=== PATIENT | female | born 1960 | race Caucasian/White ===

== ENCOUNTER → 2017-09-04 | Outpatient (CLI) | payer OTHER ==
--- NOTE | 2017-09-04 15:31 | ECHOS ---
STRESS ECHOCARDIOGRAM DATE OF SERVICE: 09/04/2017 INDICATIONS: Abnormal ECG MEDICATIONS: Losartan, omeprazole, fish oil, D3, Vitamin, ibuprofen. BASELINE HEART RATE: 67 BASELINE BLOOD PRESSURE: 131/77 MAXIMUM HEART RATE: 142 MAXIMUM. BLOOD PRESSURE: 211/85 85% MPHR: 139 100% MPHR: 164 METS: 9.7 MAXIMUM STAGE REACHED: II TOTAL EXERCISE TIME: 8:05 CLINICAL INFORMATION: Baseline rhythm is sinus mechanism, rate 67, normal axis, intervals, normal electrocardiogram. Baseline blood pressure 131/77 mmHg. The patient exercised on Maximilian protocol for 8 minute 5 seconds reaching a peak rate 142 beats per minute which is equal to 86% maximum predicted heart rate. Peak blood pressure 211/85 mmHg. Test was terminated due to fatigue. There were no chest pains. Electrocardiograph monitoring revealed rare PVCs there was no evidence of diagnostic ischemic ST deviation. FINDINGS: Baseline echocardiogram revealed normal left ventricular function at peak exercise. There was normal wall motion augmentation with no hypokinesis or dyskinesis. CONCLUSION: Average exercise tolerance with occasional premature ventricular contractions premature ventricular contractions and normal electrocardiograph response to exercise. Normal stress echocardiogram with no evidence of stress-induced ischemia. MMODL / IJN: [id number] / MTDD
== END | disposition home or self-care (01) ==
LOC: RADNMMAIN 09:43
PROVIDERS: ATTEND Family Medicine
DX: I49.3 Ventricular premature depolarization (principal)
CPT/HCPCS: 93351; Q9950

== ENCOUNTER 2017-09-27 07:58 | Day surgery (SDC) | payer OTHER ==
[2017-09-24 12:33] VITALS: BMI 34.3
--- NOTE | 2017-09-26 09:57 | HP ---
HISTORY AND PHYSICAL CHIEF COMPLAINT: Left knee pain. 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 She notes progressive pain along with giving way. She also has swelling and stiffness. She has tried medications in addition to previous injections with only partial temporary relief. PAST MEDICAL HISTORY: Significant for reflux disease. PAST SURGICAL HISTORY: Negative. CURRENT MEDICATIONS: 1. Ibuprofen. 2. Losartan. 3. Omeprazole. She denies drug allergies. FAMILY HISTORY: Significant for heart disease and cancer. SOCIAL HISTORY: Negative for current tobacco or alcohol use. REVIEW OF SYSTEMS: A 16 point review of systems otherwise reviewed and is noncontributory. PHYSICAL EXAMINATION: The patient is approximately 5 foot 4, 200 pounds of endomorphic habitus. HEENT exam is nonfocal. Neck is supple. She has painless passive motion of her left hip. Straight leg raise is negative. Active motion left knee -10 to 130 degrees of flexion. She has a mild effusion. Collaterals are stable, Pratibha is negative, Wesley's elicits medial pain. Her distal neurovascular exam appears intact in the left lower extremity. X-rays of the left knee obtained in the office show moderate medial and patellofemoral compartment narrowing. MRI report left knee shows evidence of a posterior medial meniscal tear along with a large Halrey's cyst. Degenerative changes involve the medial and patellofemoral compartment are noted. IMPRESSION: 1. Left knee internal derangement with symptomatic medial meniscal tear. 2. 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 3. Increased body mass index. RECOMMENDATIONS: I talked to the patient at length regarding her condition and treatment options. At this point, she is having persistent pain and mechanical symptoms that limit her despite conservative measures. After thorough discussion, she opts to proceed with surgery. We will plan to proceed with arthroscopic evaluation with possible partial medial meniscectomy. We will likely perform that as an outpatient procedure. Risks and benefits were discussed at length in layman's terms. The patient underwent preoperative medical evaluation by Dr. Ramsay. MMTASNEEM / OZIEL: [id number] /
[~2017-09-27 07:58] MED LIST: DEXAMETHASONE SOD PHOSPHATE 10 MG/ML 1 ML VIAL IV ONE; LACTATED RINGERS 1,000 ML IV SCH; MIDAZOLAM 2 MG/2 ML VIAL IV PRN; ONDANSETRON 4 MG/2 ML VIAL IVP ONE; ceFAZolin IN SWFI 2 GM/20 ML SYRINGE IVP ONE
[2017-09-27] MEDS ORDERED: LIDOCAINE 1% 20 ML VIAL (10MG/ML) FOR IV START INTRADERMA ONE (08:36)
[2017-09-27] MEDS ORDERED: fentaNYL (PF) 50 MCG/ML 2 ML AMP ONE (10:08)
[2017-09-27] MEDS ORDERED: EPINEPHrine (PF) 1 ML in SODIUM CHLORIDE 0.9% IRRIGATIO 3,000 ML IRRIGATION ONE ×4 (10:08)
[2017-09-27] MEDS ORDERED: PROPOFOL 10 MG/ML 20 ML VIAL IV ONE (10:08)
[2017-09-27] MEDS ORDERED: LIDOCAINE 1% INJ 10MG/ML (20 ML MDV) ONE (10:08)
[2017-09-27] MEDS ORDERED: MIDAZOLAM 2 MG/2 ML VIAL ONE (10:08)
[2017-09-27] MEDS ORDERED: LACTATED RINGERS 1,000 ML IV ONE (10:55)
[2017-09-27 11:09] VITALS: TEMP 97
--- NOTE | 2017-09-27 11:11 | P.OP ---
Date of Procedure: 09/27/17 Preoperative Diagnosis: Left knee internal derangement Postoperative Diagnosis: Left knee posterior medial meniscal tear/middle one third lateral meniscal tear/ grade 3 chondral injury medial femoral condyle/grade 3 chondral injury medial patellar facet Procedure(s) Performed: Left knee arthroscopic partial medial and lateral meniscectomy/medial femoral chondrectomy/patellar chondroplasty Anesthesia: KINJAL Surgeon: Justice Ash Estimated Blood Loss (ml): 10 Pathology: none sent Condition: stable Disposition: PACU Indications for Procedure: The patient's a 57-year-old female presents with progressive left knee pain and mechanical symptoms after a previous twisting injury despite conservative measures. A discussion of the risks and benefits of operative intervention versus continued conservative measures was made with the patient. She opted to proceed with surgery. Operative risks to include infection, neurovascular injury, development of blood clots, possible incomplete resolution of symptoms, possible worsening symptoms and need for subsequent procedures was discussed. Informed consent was obtained. Operative Findings: As below Description of Procedure: The patient was brought to the operating room, and after induction of general anesthesia examined the left knee. Collaterals were stable, Pratibha was negative, and posterior drawer was negative. The left lower extremity was prepped and draped in normal fashion. A superior lateral portal was made through a 3 mm skin incision superior and lateral to the patella. This was used for outflow. A moderate effusion was encountered. A lateral portal was made through a 5 mm vertical skin incision lateral to the patella tendon above the joint line. Diagnostic arthroscopy was performed. A medial portal was made through a similar incision medial to the patella tendon above the joint line. On inspection of the medial compartment, she was noted of complex tear involving the posterior horn of the medial meniscus in the white-junction. This was not amenable to repair. This was debrided back to stable base with straight baskets and a motorized shaver. A grade 3 chondral injury involving the posterior middle portion of the medial femoral condyle was noted with a loose chondral flap. This was debrided back to stable base with a motorized shaver. A grade 3/4 chondral defect was noted involving the medial aspect the medial tibial plateau. On inspection of the notch, the anterior cruciate ligament appeared to be intact. On inspection of the lateral compartment, a small oblique tear involving the middle one third was noted in the white-white junction. This debrided back to stable base with a motorized shaver and straight baskets. On inspection of the patellofemoral articulation, significant arthrosis was noted. There was a grade 3/4 chondral defect involving the central portion of the patella and a grade 3 chondral injury involving the medial patella facet. The loose chondral flap was debrided back to stable base with a motorized shaver. The gutters were clear debris. The knee was then thoroughly irrigated. The portals were closed with Steri-Strips. A sterile dressing was applied in addition to a compression stocking. The patient was awoken from general anesthesia and transferred to the recovery room in good condition. Blood loss was estimated 10 mL. No complications were incurred.
[2017-09-27] MEDS: HYDROmorphone 0.5 MG/0.5 ML SYRINGE IVP PRN ×2 (11:14→11:26)
[2017-09-27] MEDS ORDERED: KETOROLAC 30 MG/ML 1 ML VIAL IVP ONE (11:14)
[2017-09-27] MEDS ORDERED: HYDROcodone/APAP 5-325MG 1 EACH TAB PO ONE (12:30)
[2017-09-27] MEDS ORDERED: ONDANSETRON 4 MG/2 ML VIAL IVP ONE (13:35)
[2017-09-27] MEDS ORDERED: PROMETHAZINE INJ 25 MG/ML 1 ML VIAL IVPB ONE (14:51)
[2017-09-27 15:39] VITALS: RESP 18
[2017-09-27 15:41] VITALS: BP 128/70; PULSE 68
== END 2017-09-27 16:39 | disposition home or self-care (01) ==
LOC: OR 07:58
PROVIDERS: ATTEND Orthopaedic Surgery
DX: S83.232A Complex tear of medial meniscus, current injury, left knee, initial encounter (principal); S83.282A Other tear of lateral meniscus, current injury, left knee, initial encounter; S89.82XA Other specified injuries of left lower leg, initial encounter; M17.12 Unilateral primary osteoarthritis, left knee; K21.9 Gastro-esophageal reflux disease without esophagitis; I10 Essential (primary) hypertension; M19.90 Unspecified osteoarthritis, unspecified site; Z79.1 Long term (current) use of non-steroidal anti-inflammatories (NSAID); Z79.899 Other long term (current) drug therapy; Z82.49 Family history of ischemic heart disease and other diseases of the circulatory system; Z80.9 Family history of malignant neoplasm, unspecified; X50.9XXA Other and unspecified overexertion or strenuous movements or postures, initial encounter
CPT/HCPCS: 29880; J2250; J1100; J2550; J2405; J0171; J2001; J3010; J1885; J2704; J1170; J0690

== ENCOUNTER 2018-12-30 13:25 | Observation (INO) | payer OTHER ==
--- NOTE | 2018-12-30 14:27 | ED ---
General Adult HPI - General Chief complaint: Neuro Symptoms/Deficit Stated complaint: Medication reaction, Lethargic Time Seen by Provider: 12/30/18 14:05 Source: patient, RN notes reviewed Mode of arrival: ambulatory Limitations: no limitations - History of Present Illness Initial comments: Patient is a pleasant 58-year-old female presenting to the emergency Department with complaints of palpitations. Patient woke up this morning and has felt lightheaded since that time. Patient feels her speech may be off slightly. Family is unclear whether or not this could be slightly slurred. They state patient speech normally is slightly slurred however this may be slightly worse than normal. Patient states she does have some odd sensation of her left arm. Patient denies any weakness. Patient does not feel confused. No history of similar symptoms previously. Patient did start a new blood pressure medicine and questions if this could be related. - Related Data Home Medications Medication Instructions Recorded Confirmed Cholecalciferol [Vitamin D3] 5,000 unit PO DAILY 09/24/17 12/30/18 [place]-3 Fatty Acids/Fish Oil [Fish 1 cap PO DAILY 09/24/17 12/30/18 Oil 1,000 mg Softgel] Omeprazole [PriLOSEC] 20 mg PO AC-BRKFST 09/24/17 12/30/18 Furosemide [Lasix] 20 mg PO DAILY 12/30/18 12/30/18 Potassium Chloride [K-Tab ER] 10 meq PO DAILY 12/30/18 12/30/18 amLODIPine [Norvasc] 10 mg PO DAILY 12/30/18 12/30/18 cloNIDine HCL [Catapres] 0.1 mg PO BID 12/30/18 12/30/18 Allergies Allergy/AdvReac Type Severity Reaction Status Date / Time hydrochlorothiazide Allergy Rash/Hives Verified 12/30/18 14:45 Review of Systems ROS Statement: Those systems with pertinent positive or pertinent negative responses have been documented in the HPI. ROS Other: All systems not noted in ROS Statement are negative. Constitutional: Denies: fever Eyes: Denies: eye pain ENT: Denies: ear pain Respiratory: Denies: cough Cardiovascular: Denies: chest pain Endocrine: Denies: fatigue Gastrointestinal: Denies: abdominal pain Genitourinary: Denies: dysuria Musculoskeletal: Denies: back pain Skin: Denies: rash Neurological: Reports: paresthesias. Denies: headache, weakness, confusion Past Medical History Past Medical History: GERD/Reflux, Hypertension History of Any Multi-Drug Resistant Organisms: None Reported Past Surgical History: Ear Surgery, Orthopedic Surgery, Tonsillectomy, Tubal Ligation Additional Past Surgical History / Comment(s): sinus Past Psychological History: No Psychological Hx Reported Smoking Status: Never smoker Past Alcohol Use History: Rare Past Drug Use History: None Reported General Exam Limitations: no limitations General appearance: alert, in no apparent distress Head exam: Present: normocephalic Eye exam: Present: normal appearance, PERRL, EOMI. Absent: nystagmus ENT exam: Present: normal oropharynx Neck exam: Present: normal inspection Respiratory exam: Present: normal lung sounds bilaterally Cardiovascular Exam: Present: regular rate, normal rhythm GI/Abdominal exam: Present: soft. Absent: tenderness Extremities exam: Present: normal inspection. Absent: pedal edema, calf tenderness Neurological exam: Present: alert, oriented X3, CN II-XII intact. Absent: motor sensory deficit Expanded Neurological exam: Present: protecting the airway, other (Speech does appear slightly slurred) Patient oriented to: Present: person, place, time Cranial nerves: EOM's Intact: Normal, Facial Sensation: Normal Cerebellar function: Finger to Nose: Normal Sensory exam: Upper Extremity Light Touch: Normal, Lower Extremity Light Touch: Normal Motor strength exam: RUE: 5, LUE: 5, RLE: 5, LLE: 5 Eye Response: (4) open spontaneously Motor Response: (6) obeys commands Verbal Response: (5) oriented Psychiatric exam: Present: normal affect, normal mood Skin exam: Present: normal color Course Vital Signs 12/30/18 12/30/18 12/30/18 13:33 14:00 14:30 Temperature 97.4 F L Pulse Rate 71 70 73 Respiratory 16 10 L 21 Rate Blood Pressure 194/83 165/93 184/98 O2 Sat by Pulse 98 100 100 Oximetry 12/30/18 12/30/18 15:00 15:30 Temperature Pulse Rate 78 Respiratory 34 H Rate Blood Pressure 184/98 O2 Sat by Pulse 97 Oximetry EKG Findings - EKG Comments: EKG Findings:: Normal sinus rhythm 73. OH 140. QRS 90. QT 414. QTC 456. Normal axis. LVH criteria. No acute ST change. Medical Decision Making - Medical Decision Making Patient reevaluated and updated. Case discussed with detail with Dr. Pittman, who will admit covered for Dr. canela - Lab Data Result diagrams: 12/30/18 14:06 12/30/18 14:06 Lab Results 12/30/18 12/30/18 12/30/18 Range/Units 14:06 14:06 14:06 WBC 10.1 (3.8-10.6) k/uL RBC 4.73 (3.80-5.40) m/uL Hgb 14.7 (11.4-16.0) gm/dL Hct 42.2 (34.0-46.0) % MCV 89.2 (80.0-100.0) fL MCH 31.0 (25.0-35.0) pg MCHC 34.7 (31.0-37.0) g/dL RDW 12.8 (11.5-15.5) % Plt Count 350 (150-450) k/uL Neutrophils % 74 % Lymphocytes % 17 % Monocytes % 6 % Eosinophils % 1 % Basophils % 1 % Neutrophils # 7.4 (1.3-7.7) k/uL Lymphocytes # 1.7 (1.0-4.8) k/uL Monocytes # 0.6 (0-1.0) k/uL Eosinophils # 0.1 (0-0.7) k/uL Basophils # 0.1 (0-0.2) k/uL PT 9.9 (9.0-12.0) sec INR 0.9 (<1.2) APTT 24.3 (22.0-30.0) sec Sodium 139 (137-145) mmol/L Potassium 4.0 (3.5-5.1) mmol/L Chloride 103 (98-107) mmol/L Carbon Dioxide 24 (22-30) mmol/L Anion Gap 12 mmol/L BUN 16 (7-17) mg/dL Creatinine 0.65 (0.52-1.04) mg/dL Est GFR (CKD-EPI)AfAm >90 (>60 ml/min/1.73 sqM) Est GFR (CKD-EPI)NonAf >90 (>60 ml/min/1.73 sqM) Glucose 145 H (74-99) mg/dL Calcium 9.7 (8.4-10.2) mg/dL Total Bilirubin 0.4 (0.2-1.3) mg/dL AST 50 H (14-36) U/L ALT 100 H (9-52) U/L Alkaline Phosphatase 126 (38-126) U/L Troponin I (0.000-0.034) ng/mL Total Protein 8.1 (6.3-8.2) g/dL Albumin 4.7 (3.5-5.0) g/dL 12/30/18 Range/Units 14:06 WBC (3.8-10.6) k/uL RBC (3.80-5.40) m/uL Hgb (11.4-16.0) gm/dL Hct (34.0-46.0) % MCV (80.0-100.0) fL MCH (25.0-35.0) pg MCHC (31.0-37.0) g/dL RDW (11.5-15.5) % Plt Count (150-450) k/uL Neutrophils % % Lymphocytes % % Monocytes % % Eosinophils % % Basophils % % Neutrophils # (1.3-7.7) k/uL Lymphocytes # (1.0-4.8) k/uL Monocytes # (0-1.0) k/uL Eosinophils # (0-0.7) k/uL Basophils # (0-0.2) k/uL PT (9.0-12.0) sec INR (<1.2) APTT (22.0-30.0) sec Sodium (137-145) mmol/L Potassium (3.5-5.1) mmol/L Chloride (98-107) mmol/L Carbon Dioxide (22-30) mmol/L Anion Gap mmol/L BUN (7-17) mg/dL Creatinine (0.52-1.04) mg/dL Est GFR (CKD-EPI)AfAm (>60 ml/min/1.73 sqM) Est GFR (CKD-EPI)NonAf (>60 ml/min/1.73 sqM) Glucose (74-99) mg/dL Calcium (8.4-10.2) mg/dL Total Bilirubin (0.2-1.3) mg/dL AST (14-36) U/L ALT (9-52) U/L Alkaline Phosphatase (38-126) U/L Troponin I <0.012 (0.000-0.034) ng/mL Total Protein (6.3-8.2) g/dL Albumin (3.5-5.0) g/dL - Radiology Data Radiology results: report reviewed (Computed tomography scan and CTA shows no acute process), image reviewed (Chest x-ray shows no acute process) Disposition Clinical Impression: Transient cerebral ischemia Disposition: ADMITTED IP TO THIS HOSP Is patient prescribed a controlled substance at d/c from ED?: No Referrals: Minor Ramsay MD [Primary Care Provider] - 1-2 days Decision Time: 16:17
[2018-12-30 14:54] LABS: Basophils # (A) 0.1 k/uL (0-0.2); Basophils % (A) 1 %; Eosinophils # (A) 0.1 k/uL (0-0.7); Eosinophils % (A) 1 %; HCT 42.2 % (34.0-46.0); HGB 14.7 gm/dL (11.4-16.0); Lymphocytes # (A) 1.7 k/uL (1.0-4.8); Lymphocytes % (A) 17 %; MCHC 34.7 g/dL (31.0-37.0); MCV 89.2 fL (80.0-100.0); Mean Platelet Volume 5.7; Monocytes # (A) 0.6 k/uL (0-1.0); Monocytes % (A) 6 %; Neutrophils # (A) 7.4 k/uL (1.3-7.7); Neutrophils % (A) 74 %; Platelet Count 350 k/uL (150-450); RBC 4.73 m/uL (3.80-5.40); RDW 12.8 % (11.5-15.5); WBC 10.1 k/uL (3.8-10.6)
[2018-12-30 14:56] LABS: ALT 100 U/L (9-52); AST 50 U/L (14-36); African American GFR (CKD) >90 (>60 ml/min/1.73 sqM); Albumin 4.7 g/dL (3.5-5.0); Alkaline Phosphatase 126 U/L (38-126); Anion Gap 12 mmol/L; Blood Urea Nitrogen 16 mg/dL (7-17); Calcium 9.7 mg/dL (8.4-10.2); Carbon Dioxide 24 mmol/L (22-30); Chloride 103 mmol/L (98-107); Glucose 145 mg/dL (74-99); Sodium 139 mmol/L (137-145); Total Bilirubin 0.4 mg/dL (0.2-1.3); Total Protein 8.1 g/dL (6.3-8.2)
[2018-12-30 15:05] LABS: INR 0.9 (<1.2); Partial Thromboplastin Time 24.3 sec (22.0-30.0); Prothrombin Time 9.9 sec (9.0-12.0)
--- NOTE | 2018-12-30 15:32 | CT ---
EXAMINATION TYPE: CT brain wo con for TPA DATE OF EXAM: 12/30/2018 COMPARISON: None HISTORY: lightheadedness CT DLP: 987.[address] of the brain was performed. The ventricles, basal cisterns and sulci overlying the cerebral convexities demonstrate mild enlargem ent. There is no evidence for intracranial hemorrhage or sulcal effacement. There is decreased attenuation about the periventricular white matter and deep white matter of both c erebral hemispheres, compatible with chronic small vessel ischemia. Differential diagnosis does inclu de demyelination. No mass effects are seen.No midline shift. Osseous calvarium is intact. If symptoms persist consider MRI. IMPRESSION: 1. Age related atrophic and chronic small vessel ischemic change without acute intracranial process s een at this time.
--- NOTE | 2018-12-30 15:44 | XR ---
EXAMINATION TYPE: XR chest 2V DATE OF EXAM: 12/30/2018 COMPARISON: None INDICATION: Altered mental status lethargic hypertension TECHNIQUE: Frontal and lateral views of the chest are obtained. FINDINGS: The heart size is normal. The pulmonary vasculature is normal. The lungs are clear. IMPRESSION: 1. No acute pulmonary process.
--- NOTE | 2018-12-30 15:45 | CT ---
EXAMINATION TYPE: CT angio head neck DATE OF EXAM: 12/30/2018 COMPARISON: None HISTORY: lightheadedness CT DLP: 688.9 mGycm CONTRAST: Performed with IV Contrast, patient injected with 65 mL of Isovue 370. Combination Contrast CTA cervical carotids and [place] of [place] CTA cervical carotids with 3-D recons truction Contrast CTA of the cervical carotids was performed 3-D reconstruction imaging obtained at a separate workstation. Right carotid system: Mild plaque is seen of the right common carotid artery. There is mild plaque a lso noted at the carotid bulb and proximal ICA. No significant diameter reduction. ECA is patent. Right vertebral artery appears unremarkable. Left carotid system: Mild plaque is seen of the left common carotid artery. There is mild plaque als o noted at the carotid bulb and proximal ICA. No significant diameter reduction. ECA is patent. Lef t vertebral artery appears unremarkable. IMPRESSION: 1. No significant diameter reduction to account for the patient's symptoms. CTA [place] of [place] with 3-D reconstruction Contrast CTA of the [place] of [place] was performed 3-D reconstruction imaging obtained at a separate workstation. Vertebrobasilar system as well as intracranial portions of the internal carotid arteries and their ma santhosh tributaries are patent. I do not see evidence for sizable aneurysm or vascular malformation. Pl ease note MRI provides greater sensitivity and specificity. Visualized brain appears grossly unremar kable. IMPRESSION: 1. No significant abnormality.
[2018-12-30] MEDS ORDERED: ASPIRIN 325 MG TAB PO STA (16:17)
[2018-12-30] MEDS: SODIUM CHLORIDE 0.9% 1,000 ML IV SCH (16:37)
[2018-12-31 06:30] LABS: Cholesterol 204 mg/dL (<200); HDL Cholesterol 55 mg/dL (40-60); LDL Cholesterol,Calculated 110 mg/dL (0-99); Triglycerides 194 mg/dL (<150)
[2018-12-31] MEDS ORDERED: ASPIRIN 325 MG TAB PO SCH (09:00)
[2018-12-31] MEDS ORDERED: amLODIPine 10 MG TAB PO SCH (10:30)
[2018-12-31] MEDS ORDERED: PANTOPRAZOLE 40 MG TABLET PO SCH (10:30)
[2018-12-31] MEDS ORDERED: CHOLECALCIFEROL 1,000 UNIT TAB PO SCH (10:30)
[2018-12-31] MEDS ORDERED: CHLORTHALIDONE 25 MG TAB PO SCH (10:30)
[2018-12-31] MEDS: SODIUM CHLORIDE 0.9% 1,000 ML IV SCH ×2 (11:00→16:24)
--- NOTE | 2018-12-31 12:31 | ECHOF ---
Referral Reason:Thrombus MEASUREMENTS -------- HEIGHT: 162.6 cm WEIGHT: 94.8 kg BP: 131/74 RVIDd: 2.8 cm (< 3.3) IVSd: 1.5 cm (0.6 - 1.1) LVIDd: 4.4 cm (3.9 - 5.3) LVPWd: 1.4 cm (0.6 - 1.1) IVSs: 1.7 cm LVIDs: 3.1 cm LVPWs: 1.9 cm LA Diam: 3.7 cm (2.7 - 3.8) LAESV Index (A-L): 15.21 ml/m Ao Diam: 2.9 cm (2.0 - 3.7) AV Cusp: 2.2 cm (1.5 - 2.6) MV EXCURSION: 20.824 mm (> 18.000) MV EF SLOPE: 130 mm/s (70 - 150) EPSS: 0.4 cm MV E Edgar: 0.86 m/s MV DecT: 150 ms MV A Edgar: 0.85 m/s MV E/A Ratio: 1.01 FINDINGS -------- Sinus rhythm. This was a technically difficult study with suboptimal apical views. The left ventricular size is normal. There is moderate concentric left ventricular hypertrophy. O verall left ventricular systolic function is normal with, an EF between 60 - 65 %. The diastolic fi lling pattern is normal for the age of the patient 9.67. The right ventricle is normal in size. Normal LA size by volume 22+/-6 ml/m2. The right atrium is normal in size. 5 ml of Lumason was utilized for enhancement of images. Interatrial and interventricular septum intact. The aortic valve is trileaflet and appears structurally normal. There is trace to mild mitral regurgitation. Mild tricuspid regurgitation present. The pulmonic valve was not well visualized. The aortic root size is normal. Normal inferior vena cava with normal inspiratory collapse consistent with estimated right atrial pre ssure of 5 mmHg. There is no pericardial effusion. CONCLUSIONS -------- 1. Sinus rhythm. 2. This was a technically difficult study with suboptimal apical views. 3. The left ventricular size is normal. 4. There is moderate concentric left ventricular hypertrophy. 5. Overall left ventricular systolic function is normal with, an EF between 60 - 65 %. 6. The diastolic filling pattern is normal for the age of the patient 9.67 7. The right ventricle is normal in size. 8. Normal LA size by volume 22+/-6 ml/m2. 9. The right atrium is normal in size. 10. 5 ml of Lumason was utilized for enhancement of images. 11. Interatrial and interventricular septum intact. 12. The aortic valve is trileaflet and appears structurally normal. 13. There is trace to mild mitral regurgitation. 14. Mild tricuspid regurgitation present. 15. The pulmonic valve was not well visualized. 16. The aortic root size is normal. 17. Normal inferior vena cava with normal inspiratory collapse consistent with estimated right atrial pressure of 5 mmHg. 18. There is no pericardial effusion. METEOROLOGIST LIAISON: Esthela Sexton RDCS
--- NOTE | 2018-12-31 12:38 | P.CNNES ---
History of Present Illness Consult date: 12/31/18 Reason for Consult: Concern for stroke Chief complaint: Palpitations, ? Slurred speech History of Present Illness: HISTORY OF PRESENT ILLNESS: Thank you for allowing me to evaluate Ms. Adriana King. Ms. King is a 58-year-old woman with past medical history of hypertension and GERD, initially presented to [facility] for generalized weakness, on evaluation patient reported possibly having some slurred speech and some altered sensation in her LUE, consulting neurology for concern for stroke/TIA. Patient states that she had been feeling very weak and not feeling right. Daughter had stated she had some slurred speech, but when I asked daughter do describe, it was more mumbling, which patient often has when she feels sick. Patient states that her LUE and L face didn't necessarily feel numb but felt "different." At this time, she still has the sensation. Patient states that she was recently started on clonidine, which she thinks made her feel off. Her PCP discontinued this medication for her. Her BP has been elevated. She also was started on lasix, and she feels as though the lasix makes her feel constipated. She also feels "bloated" often times in her extremities and all over her body, and she thought the sensation she's having right now was part of feeling "bloated." Denies headache, nausea, vomiting, double/blurry vision, weakness. PAST MEDICAL HISTORY: Hypertension, GERD PAST SURGICAL HISTORY: Tonsillectomy, tubal ligation, ear surgery HOME MEDICATIONS: Omeprazole, vitamin D, omega-3, clonidine, amlodipine, furosemide, potassium ALLERGIES: Hydrochlorothiazide SOCIAL HISTORY: Never smoker. Denies EtOH/drug abuse history FAMILY HISTORY: Father had SC. Grandmother had stroke, DM and HTN REVIEW OF SYSTEMS: The 14 systems are reviewed and no additional points are identified compared to the review of systems documented history and physical PHYSICAL EXAMINATION: VITAL SIGNS: T 98.6 HR 49 RR 16 BP 131/84 O2 sat 98% on RA GEN.: NAD, pleasant and cooperative HEENT: NCAT, sclera without icterus NECK: Supple, no carotid bruit SKIN AND EXTREMITIES: Warm to touch, no edema NEURO: MENTAL STATUS: Patient alert and oriented to self, place, time. Able to name the current president. Speech fluent, able to name and repeat, following all commands readily. No right and left disorientation, extinction to double simultaneous stimulation, finger agnosia, neglect. CRANIAL NERVES II THROUGH XII: II: Pupils are equal and reactive to light symmetrically. No afferent pupillary defect. Visual ochoa are intact. III, IV, : No ptosis. Extraocular movements full. No nystagmus. V: Feeling "different" in the corner of her L lip. Otherwise, Facial sensation intact from V1-3. VII. No clear facial asymmetry. VIII: Hearing intact to finger rub bilaterally. IX, X: Symmetric palate elevation. XI: Shoulder shrug intact. XII: Tongue midline without fasciculation or atrophy. MOTOR: Normal bulk/tone. No pronator drift or tremor. Strength is 5/5 throughout all 4 extremities. SENSORY: Intact to light touch in all 4 extremities. Romberg is negative. REFLEXES: 2+ throughout. Toes are downgoing. No clonus. Urszula's is absent COORDINATION: Finger to nose and heel to hanley intact. No dysmetria. Rapid alternating movements with good speed and accuracy. GAIT: Narrow-based and stable. Able to toe/heel/tandem walk DIAGNOSTIC TESTING: LABORATORY: WBC 10.1 hemoglobin 14.7 platelet 350 PT 9.9 INR 0.9 Sodium 139 potassium 4.0 chloride 103 bicarb 24 BUN 16 creatinine 0.65 glucose 145 AST 50 ALT 100 troponin <0.012 total cholesterol 204 LDL 110 HDL 55 triglycerides 194 IMAGING: CT head without contrast 12/30/2018: Age-related atrophic and chronic small vessel ischemic changes without acute intracranial process seen at this time CTA head/neck with contrast 01/10/2019: No significant diameter reduction to come for the patient's symptoms. No significant abnormality within the intracranial arteries. ASSESSMENT: Ms. King is a 58-year-old woman with past medical history of hypertension and GERD, initially presented to [facility] for generalized weakness, on evaluation patient reported possibly having some slurred speech and some altered sensation in her LUE, consulting neurology for concern for stroke/TIA. Patient is continuing to have this sensation, which could be from her initially elevated BP, but cannot rule out stroke. RECOMMENDATIONS: 1. MRI brain without contrast 2. Transthoracic echocardiogram 3. Cardiac monitoring 4. Permissive HTN for 24-48 hours SBP >220. Give labetalol 10mg IV q1h PRN for SBP >220 DBP >110 5. ASA 81mg qday, Atorvastatin 80mg qhs 6. Labs: A1C, TSH, FLP 7. PT/OT/ST per protocol 8. Discussed with patient about stroke prevention guidelines. Medication compliance, hypertension/diabetes control, lifestyle changes including no smoking, drinking in moderation, losing weight, exercising, eating healthier 9. Neurology will continue to follow 10. Patient will need to follow up with neurologist as outpatient Past Medical History Past Medical History: GERD/Reflux, Hypertension History of Any Multi-Drug Resistant Organisms: None Reported Past Surgical History: Ear Surgery, Orthopedic Surgery, Tonsillectomy, Tubal Ligation Additional Past Surgical History / Comment(s): sinus Past Psychological History: No Psychological Hx Reported Smoking Status: Never smoker Past Alcohol Use History: Rare Additional Past Alcohol Use History / Comment(s): Never smoker. Lives with significat other. Ambulates independently Past Drug Use History: None Reported - Past Family History Mother Family Medical History: Hypertension Father Family Medical History: Myocardial Infarction (SC) Additional Family Medical History / Comment(s): Father at 48 Medications and Allergies Home Medications Medication Instructions Recorded Confirmed Type Cholecalciferol [Vitamin D3] 5,000 unit PO DAILY 09/24/17 12/30/18 History [place]-3 Fatty Acids/Fish Oil [Fish 1 cap PO DAILY 09/24/17 12/30/18 History Oil 1,000 mg Softgel] Omeprazole [PriLOSEC] 20 mg PO AC-BRKFST 09/24/17 12/30/18 History Furosemide [Lasix] 20 mg PO DAILY 12/30/18 12/30/18 History Potassium Chloride [K-Tab ER] 10 meq PO DAILY 12/30/18 12/30/18 History amLODIPine [Norvasc] 10 mg PO DAILY 12/30/18 12/30/18 History cloNIDine HCL [Catapres] 0.1 mg PO BID 12/30/18 12/30/18 History Allergies Allergy/AdvReac Type Severity Reaction Status Date / Time hydrochlorothiazide Allergy Rash/Hives Verified 12/30/18 14:45 Physical Examination - Vital Signs Vital Signs: Vital Signs Temp Pulse Pulse Resp BP BP Pulse Ox 12/31/18 04:00 98.6 F 49 L 16 131/84 98 12/31/18 00:00 98 F 63 16 154/75 97 12/30/18 20:00 98.2 F 75 18 151/84 98 12/30/18 18:38 75 18 12/30/18 18:33 98.3 F 75 18 136/88 99 12/30/18 18:13 98.3 F 75 18 136/88 99 12/30/18 17:30 65 13 164/94 97 12/30/18 17:00 68 20 164/96 96 12/30/18 16:30 63 16 146/79 96 12/30/18 16:00 69 25 H 176/93 96 12/30/18 15:30 78 34 H 97 12/30/18 15:00 184/98 12/30/18 14:30 73 21 184/98 100 12/30/18 14:00 70 10 L 165/93 100 12/30/18 13:33 97.4 F L 71 16 194/83 98 Intake and Output 12/30/18 12/31/18 12/31/18 22:59 06:59 14:59 Intake Total 100 120 Balance 100 120 Intake: Intake, IV Titration 100 Amount Sodium Chloride 0.9% 1, 100 000 ml @ 100 mls/hr IV . Q10H SHANAE Rx#:[id number] Oral 120 Other: Voiding Method Toilet Toilet # Voids 2 Weight 95.1 kg Results - Laboratory Findings CBC and BMP: 12/30/18 14:06 12/30/18 14:06 Abnormal Lab Findings: Abnormal Labs 12/30/18 12/30/18 06:00 14:06 Glucose 145 H AST 50 H ALT 100 H Triglycerides 194 H Cholesterol 204 H LDL Cholesterol, Calc 110 H
[2018-12-31 15:05] VITALS: RESP 18
--- NOTE | 2018-12-31 15:33 | MR ---
EXAMINATION TYPE: MR brain wo con DATE OF EXAM: 12/31/2018 COMPARISON: CT brain from yesterday HISTORY: Left upper extremity numbness. TECHNIQUE: Multiplanar, multisequence imaging of the brain and brainstem is performed without IV cont rast. FINDINGS: Diffusion weighted images demonstrate no evidence of a recent infarct or other diffusion abnormality. There is no worrisome extra-axial fluid collection. Mild ventricular and sulcal prominence is redemon strated. Occasional small scattered focus of T2 hyperintensity seen throughout the white matter. Larg est lesion posterior right frontal lobe measures 3 to 4 mm in size axial image 23. Approximately 5-10 smaller scattered lesions are seen. Midline structures demonstrate normal morphology. The craniocervical junction appears within normal limits. Normal vascular flow voids are present. The visualized sinuses are clear and the globes are i ntact. IMPRESSION: No MRI evidence for recent infarct. Mild diffuse cerebral atrophy and chronic small vesse l ischemic changes are present.
[2018-12-31 17:57] VITALS: BP 146/82; PULSE 62; TEMP 97.3
[2018-12-31] MEDS ORDERED: ATORVASTATIN 80 MG TAB PO SCH (21:00)
--- NOTE | 2018-12-31 23:10 | P.HPIM ---
History of Present Illness H&P Date: 12/31/18 Chief Complaint: Unwell History of presenting complaint: This is a very pleasant 58-year-old patient of Dr. manuel from [place]. Patient had not been feeling well for about 2 days just feeling out of sorts. Yesterday morning just felt a bit tired. Slowly getting worse. There is no chest pain, no shortness of breath, no fever no chills. No palpitations. Denied any urinary or respiratory symptoms. [place] some numbness tingling in the left side of the face and the left arm. Decided to present to the ER. No change in speech. No change in vision. No headaches. Today was some question about the speech being slightly off. Subsequently the symptoms improved over a span of several hours. Presented here for a neurological workup. Initial testing was all negative. Neurology was consulted. Neuro checks in place. Review of systems: GEN.: None EYES: None HEENT: None NECK: None RESPIRATORY: None CARDIOVASCULAR: None GASTROINTESTINAL: None GENITOURINARY: None MUSCULOSKELETAL: None LYMPHATICS: None HEMATOLOGICAL: None PSYCHIATRY: None NEUROLOGICAL: As above Social history: Lives with significant another. No smoking. Alcohol occasionally. Physical examination: VITAL SIGNS: 97.4, 71, 16, 194/83, 98% room air GENERAL: BMI 36, sitting up comfortable. EYES: Pupils equal. Conjunctiva normal. HEENT: External appearance of nose and ears normal, oral cavity grossly normal. NECK: JVD not raised; masses not palpable. HEART: First and second heart sounds are normal; no edema. LUNGS: Respiratory rate normal; clear to auscultation. ABDOMEN: Soft, nontender, liver spleen not palpable, no masses palpable. PSYCH: Alert and oriented x3; mood and affect normal. NEUROLOGICAL: Cranial nerves grossly intact; no facial asymmetry, power and sensation grossly intact. LYMPHATICS: No lymph nodes palpable in the axilla and neck INVESTIGATIONS, reviewed in the clinical context: White count 10 hemoglobin 14.7 potassium 4.0 creatinine 0.65 LDL 110 EKG tracing personally reviewed by me-normal sinus rhythm with LVH Chest x-ray film personally reviewed by me-lung is clear CT brain-age related changes CT angiogram-unremarkable Assessment: -Possible TIA in a patient with some numbness left side of the face and on the left arm. And some questionable change in speech. -GERD -Essential hypertension with urgency -Obesity BMI 36 Plan: Patient is put on antiplatelet agents. Neurology was consulted. Neuro checks were done. MRI and 2-D echo of the brain was ordered. Care was discussed with the patient. Past Medical History Past Medical History: GERD/Reflux, Hypertension History of Any Multi-Drug Resistant Organisms: None Reported Past Surgical History: Ear Surgery, Orthopedic Surgery, Tonsillectomy, Tubal Ligation Additional Past Surgical History / Comment(s): sinus Past Psychological History: No Psychological Hx Reported Smoking Status: Never smoker Past Alcohol Use History: Rare Additional Past Alcohol Use History / Comment(s): Never smoker. Lives with significat other. Ambulates independently Past Drug Use History: None Reported - Past Family History Mother Family Medical History: Hypertension Father Family Medical History: Myocardial Infarction (CT) Additional Family Medical History / Comment(s): Father at 48 Medications and Allergies Home Medications Medication Instructions Recorded Confirmed Type Cholecalciferol [Vitamin D3 (25 5,000 unit PO DAILY 09/24/17 12/30/18 History Mcg = 1000 Iu)] [place]-3 Fatty Acids/Fish Oil [Fish 1 cap PO DAILY 09/24/17 12/30/18 History Oil 1,000 mg Softgel] Omeprazole [PriLOSEC] 20 mg PO AC-BRKFST 09/24/17 12/30/18 History amLODIPine [Norvasc] 10 mg PO DAILY 12/30/18 12/30/18 History Aspirin 81 mg PO DAILY chew 12/31/18 Rx Atorvastatin [Lipitor] 40 mg PO HS #30 tablet 12/31/18 Rx Chlorthalidone [Hygroton] 25 mg PO DAILY #30 tab 12/31/18 Rx Allergies Allergy/AdvReac Type Severity Reaction Status Date / Time hydrochlorothiazide Allergy Rash/Hives Verified 12/30/18 14:45 Physical Exam Vitals: Vital Signs Temp Pulse Pulse Resp BP BP Pulse Ox 12/31/18 09:42 60 16 12/31/18 09:41 66 16 180/84 97 12/31/18 04:00 98.6 F 49 L 16 131/84 98 12/31/18 00:00 98 F 63 16 154/75 97 12/30/18 20:00 98.2 F 75 18 151/84 98 12/30/18 18:38 75 18 12/30/18 18:33 98.3 F 75 18 136/88 99 12/30/18 18:13 98.3 F 75 18 136/88 99 12/30/18 17:30 65 13 164/94 97 12/30/18 17:00 68 20 164/96 96 12/30/18 16:30 63 16 146/79 96 12/30/18 16:00 69 25 H 176/93 96 12/30/18 15:30 78 34 H 97 12/30/18 15:00 184/98 12/30/18 14:30 73 21 184/98 100 12/30/18 14:00 70 10 L 165/93 100 12/30/18 13:33 97.4 F L 71 16 194/83 98 Intake and Output 12/30/18 12/31/18 12/31/18 22:59 06:59 14:59 Intake Total 100 120 Balance 100 120 Intake: Intake, IV Titration 100 Amount Sodium Chloride 0.9% 1, 100 000 ml @ 100 mls/hr IV . Q10H SHANAE Rx#:[id number] Oral 120 Other: Voiding Method Toilet Toilet # Voids 2 Weight 95.1 kg Results CBC & Chem 7: 12/30/18 14:06 12/30/18 14:06 Labs: Abnormal Lab Results - Last 24 Hours (Table) 12/30/18 12/30/18 Range/Units 06:00 14:06 Glucose 145 H (74-99) mg/dL AST 50 H (14-36) U/L ALT 100 H (9-52) U/L Triglycerides 194 H (<150) mg/dL Cholesterol 204 H (<200) mg/dL LDL Cholesterol, Calc 110 H (0-99) mg/dL Thrombosis Risk Factor Assmnt - Choose All That Apply Any of the Below Risk Factors Present?: Yes Each Factor Represents 1 point: Age 41-60 years, Obesity (BMI >25) Other Risk Factors: No Other congenital or acquired thrombophilia - If yes, enter type in comment: No Thrombosis Risk Factor Assessment Total Risk Factor Score: 2 Thrombosis Risk Factor Assessment Level: Low Risk
--- NOTE | 2018-12-31 23:16 | P.DS ---
Providers Date of admission: 12/30/18 16:19 Expected date of discharge: 12/31/18 Attending physician: Sanjay Pittman Consults: 12/30/18 16:19 Consult Physician Urgent Consulting Provider: Xi Wolff Reason/Comments: tia Do you want consulting provider notified?: Yes Primary care physician: Minor Ramsay [place] Hospital Course: Chief Complaint: [place] Hospital course: This is a very pleasant 58-year-old patient of Dr. ramsay from [place]. Patient had not been feeling well for about 2 days just feeling out of sorts. Yesterday morning just felt a bit tired. Slowly getting worse. There is no chest pain, no shortness of breath, no fever no chills. No palpitations. Denied any urinary or respiratory symptoms. [place] some numbness tingling in the left side of the face and the left arm. Decided to present to the ER. No change in speech. No change in vision. No headaches. Today was some question about the speech being slightly off. Subsequently the symptoms improved over a span of several hours. Presented here for a neurological workup. Initial testing was all negative. Neurology was consulted. Neuro checks in place. Patient was just started on Catapres. Did not feel right after taking it. This was discontinued. She was left on the amlodipine. Chlorthalidone was added. Blood pressures really high when she came in. Well controlled before discharge. Extensive medical workup was done including CT and of the brain, MRA, 2-D echo. All were negative. [place] to be TIA. Aspirin and Lipitor was added. Seen by neurology. Okay to be discharged. Consultation: Dr. Wolff from neurology Physical examination: VITAL SIGNS: 97.3, 62, 18, 1 46/22, 95% room air GENERAL: BMI 36, sitting up comfortable. EYES: Pupils equal. Conjunctiva normal. HEENT: External appearance of nose and ears normal, oral cavity grossly normal. NECK: JVD not raised; masses not palpable. HEART: First and second heart sounds are normal; no edema. LUNGS: Respiratory rate normal; clear to auscultation. ABDOMEN: Soft, nontender, liver spleen not palpable, no masses palpable. PSYCH: Alert and oriented x3; mood and affect normal. NEUROLOGICAL: Cranial nerves grossly intact; no facial asymmetry, power and sensation grossly intact. LYMPHATICS: No lymph nodes palpable in the axilla and neck INVESTIGATIONS, reviewed in the clinical context: White count 10 hemoglobin 14.7 potassium 4.0 creatinine 0.65 LDL 110 EKG tracing personally reviewed by me-normal sinus rhythm with LVH Chest x-ray film personally reviewed by me-lung is clear CT brain-age related changes CT angiogram-unremarkable MRI of the brain-negative 2-D echocardiogram-unremarkable. EF 60-65% Discharge diagnosis: -Possible TIA in a patient with some numbness left side of the face and on the left arm. And some questionable change in speech. -GERD -Essential hypertension with urgency, POA -Obesity BMI 36 Disposition: Home Patient Condition at Discharge: Stable Plan - Discharge Summary Discharge Rx Participant: Yes New Discharge Prescriptions: New Aspirin 81 mg PO DAILY chew Chlorthalidone [Hygroton] 25 mg PO DAILY #30 tab Atorvastatin [Lipitor] 40 mg PO HS #30 tablet Continue Omeprazole [PriLOSEC] 20 mg PO AC-BRKFST Cholecalciferol [Vitamin D3 (25 Mcg = 1000 Iu)] 5,000 unit PO DAILY amLODIPine [Norvasc] 10 mg PO DAILY Discontinued cloNIDine HCL [Catapres] 0.1 mg PO BID Furosemide [Lasix] 20 mg PO DAILY Potassium Chloride [K-Tab ER] 10 meq PO DAILY No Action [place]-3 Fatty Acids/Fish Oil [Fish Oil 1,000 mg Softgel] 1 cap PO DAILY Discharge Medication List Cholecalciferol [Vitamin D3 (25 Mcg = 1000 Iu)] 5,000 unit PO DAILY 09/24/17 [History] [place]-3 Fatty Acids/Fish Oil [Fish Oil 1,000 mg Softgel] 1 cap PO DAILY 09/24/17 [History] Omeprazole [PriLOSEC] 20 mg PO AC-BRKFST 09/24/17 [History] amLODIPine [Norvasc] 10 mg PO DAILY 12/30/18 [History] Aspirin 81 mg PO DAILY chew 12/31/18 [Rx] Atorvastatin [Lipitor] 40 mg PO HS #30 tablet 12/31/18 [Rx] Chlorthalidone [Hygroton] 25 mg PO DAILY #30 tab 12/31/18 [Rx] Follow up Appointment(s)/Referral(s): Yonny Jenkins MD [STAFF PHYSICIAN] - 1 Week (Neurologist. Office is closed. Please call to schedule appointment.) Minor Ramsay MD [Primary Care Provider] - 01/05/19 12:15 pm (Saturday) Patient Instructions/Handouts: Hypertension (DC) Activity/Diet/Wound Care/Special Instructions: Patient will pick medications up at [facility] [place]. Discharge Disposition: HOME SELF-CARE
[2019-01-01] MEDS ORDERED: ASPIRIN 81 MG PO SCH (09:00)
== END 2018-12-31 18:05 | disposition home or self-care (01) ==
LOC: EC 13:25 → 3SCARD 16:19
PROVIDERS: ADMIT Hospitalist; ATTEND Hospitalist
DX: R20.0 Anesthesia of skin (principal); R20.2 Paresthesia of skin; I10 Essential (primary) hypertension; I16.0 Hypertensive urgency; K21.9 Gastro-esophageal reflux disease without esophagitis; R00.2 Palpitations; E66.9 Obesity, unspecified; Z68.36 Body mass index [BMI] 36.0-36.9, adult; Z79.899 Other long term (current) drug therapy; Z88.8 Allergy status to other drugs, medicaments and biological substances; Z98.51 Tubal ligation status; Z83.3 Family history of diabetes mellitus; Z82.49 Family history of ischemic heart disease and other diseases of the circulatory system; Z82.3 Family history of stroke
CPT/HCPCS: 99285; 36415; 93005; 93306; 97161; 97165; 92522; 80061; 80053; 84484; 85025; 85610; 85730; 71046; 70496; 70450; 70498; 70551; G0378 ×2; Q9950; Q9967

== ENCOUNTER → 2019-10-12 | Outpatient (CLI) | payer OTHER ==
--- NOTE | 2019-10-14 08:56 | MM ---
Reason for exam: screening (asymptomatic). Last mammogram was performed 1 year and 9 months ago. History: Patient is postmenopausal. Family history of breast cancer in 2 aunts. Excisional biopsy of the right breast. Physical Findings: A clinical breast exam by your physician is recommended on an annual basis and results should be correlated with mammographic findings. MG 3D Screening Mammo W/Cad Bilateral CC and MLO view(s) were taken. Prior study comparison: January 09, 2018, mammogram. December 25, 2017, mammogram. July 06, 2015, mammogram. Finding: There are equal density (isodense), circumscribed oval masses in both breasts with calcification. Previous mammotome biopsy in the right breast. New finding since January 09, 2018, December 25, 2017, and July 06, 2015. ASSESSMENT: Incomplete: need additional imaging evaluation, BI-RAD 0 RECOMMENDATION: Special view mammogram of both breasts. If lesion persists on supplemental views, image directed ultrasound is recommended. [facility] will attempt to contact patient to return for supplemental views and ultrasound if indicated.
== END | disposition home or self-care (01) ==
LOC: RADMAMWWP 09:44
DX: Z12.31 Encounter for screening mammogram for malignant neoplasm of breast (principal)
CPT/HCPCS: 77063; 77067

== ENCOUNTER → 2019-10-19 | Outpatient (CLI) | payer OTHER ==
--- NOTE | 2019-10-19 14:44 | MM ---
Reason for exam: additional evaluation requested from abnormal screening. Last mammogram was performed less than 1 month ago. History: Patient is postmenopausal. Family history of breast cancer in 2 aunts. Benign excisional biopsy of the right breast. Physical Findings: Nurse did not find any significant physical abnormalities on exam. MG 3D Work Up W/Cad SEEMA Bilateral spot compression CC, spot compression MLO, and LM view(s) were taken. Prior study comparison: October 12, 2019, bilateral MG 3d screening mammo w/cad. January 09, 2018, mammogram. The breast tissue is almost entirely fat. No significant new findings when compared with previous films. These results were verbally communicated with the patient and result sheet given to the patient on 10/19/19. ASSESSMENT: Benign, BI-RAD 2 RECOMMENDATION: Return to routine screening mammogram schedule for both breasts.
== END | disposition home or self-care (01) ==
LOC: RADMAMWWP 13:44
PROVIDERS: ATTEND Internal Medicine
DX: R92.8 Other abnormal and inconclusive findings on diagnostic imaging of breast (principal); R92.2 Inconclusive mammogram
CPT/HCPCS: 77062; 77066

== ENCOUNTER → 2019-10-23 | Outpatient (CLI) | payer OTHER ==
--- NOTE | 2019-10-23 09:57 | US ---
EXAMINATION TYPE: US abdomen limited DATE OF EXAM: 10/23/2019 COMPARISON: NONE CLINICAL HISTORY: 59-year-old female R94.5 Abnormal results of liver function studies. Abnormal labs, new diabetic TECHNIQUE: Multiple sonographic images of the right upper quadrant are obtained. FINDINGS: EXAM MEASUREMENTS: Liver Length: 17.4 cm Gallbladder Wall: 0.2 cm CBD: 0.6 cm Right Kidney: 9.5 x 3.9 x 5.0 cm Pancreas: Pancreatic tail is obscured by bowel gas shadowing. Visualized portions show no gross abno rmal body. Liver: Heterogeneous, echogenic, and attenuating. This secondary limits assessment for focal lesions. Gallbladder: wnl Evidence for sonographic Canseco's sign: no CBD: Borderline caliber. Right Kidney: wnl IMPRESSION: 1. Heterogeneous, echogenic, and attenuating liver suggests underlying fatty infiltration. 2. Bile duct is borderline dilated at 6 mm. This may be normal given patient's age. Further clinical correlation recommended.
== END | disposition home or self-care (01) ==
LOC: RADUSWWP 08:12
PROVIDERS: ATTEND Internal Medicine
DX: R94.5 Abnormal results of liver function studies (principal)
CPT/HCPCS: 76705

== ENCOUNTER → 2019-12-22 | Outpatient (CLI) | payer OTHER ==
[2019-12-22 11:24] LABS: Basophils % (A) 1 %; Eosinophils # (A) 0.2 k/uL (0-0.7); Eosinophils % (A) 3 %; HGB 13.7 gm/dL (11.4-16.0); Lymphocytes # (A) 2.3 k/uL (1.0-4.8); Lymphocytes % (A) 28 %; MCH 29.5 pg (25.0-35.0); MCHC 31.9 g/dL (31.0-37.0); MCV 92.5 fL (80.0-100.0); Mean Platelet Volume 7.1; Monocytes # (A) 0.7 k/uL (0-1.0); Monocytes % (A) 8 %; Neutrophils # (A) 4.8 k/uL (1.3-7.7); Neutrophils % (A) 58 %; Platelet Count 345 k/uL (150-450); RBC 4.65 m/uL (3.80-5.40); RDW 13.1 % (11.5-15.5); WBC 8.3 k/uL (3.8-10.6)
[2019-12-22 19:33] LABS: Hemoglobin A1C 6.6 % (4.0-6.0)
[2019-12-22 20:43] LABS: African American GFR (CKD) 93.5 (60.0-200.0); Albumin 4.6 g/dL (3.80-4.90); Albumin/Globulin Ratio 2.09 (1.60-3.17); Anion Gap 9.3 mmol/L (4.00-12.00); BUN/Creat Ratio 28.75 Ratio (12.00-20.00); Calcium 9.5 mg/dL (8.7-10.3); Carbon Dioxide 25.7 mmol/L (21.6-31.8); Globulin 2.2 g/dL (1.6-3.3); Non-African American GFR(CKD) 80.7 (60.0-200.0); Potassium 4.1 mmol/L (3.5-5.5); Total Bilirubin 0.5 mg/dL (0.2-1.2); Total Protein 6.8 g/dL (6.2-8.2)
== END | disposition home or self-care (01) ==
LOC: LABWHC1 10:53
PROVIDERS: ATTEND Internal Medicine
DX: E11.9 Type 2 diabetes mellitus without complications (principal); R74.0 Nonspecific elevation of levels of transaminase and lactic acid dehydrogenase [LDH]; R94.5 Abnormal results of liver function studies
CPT/HCPCS: 36415; 80053; 82977; 83036; 85025

== ENCOUNTER → 2020-02-08 | Outpatient (CLI) | payer OTHER ==
[2020-02-08 11:54] LABS: Basophils # (A) 0.1 k/uL (0-0.2); Basophils % (A) 1 %; Eosinophils # (A) 0.2 k/uL (0-0.7); Eosinophils % (A) 2 %; HCT 43.4 % (34.0-46.0); HGB 14.3 gm/dL (11.4-16.0); Lymphocytes # (A) 2.4 k/uL (1.0-4.8); Lymphocytes % (A) 31 %; MCHC 32.9 g/dL (31.0-37.0); MCV 94.4 fL (80.0-100.0); Mean Platelet Volume 6.8; Monocytes # (A) 0.6 k/uL (0-1.0); Monocytes % (A) 8 %; Neutrophils # (A) 4.2 k/uL (1.3-7.7); Neutrophils % (A) 55 %; Platelet Count 328 k/uL (150-450); RDW 12.7 % (11.5-15.5); WBC 7.6 k/uL (3.8-10.6)
[2020-02-08 20:05] LABS: African American GFR (CKD) 93.5 (60.0-200.0); Albumin 4.6 g/dL (3.80-4.90); Albumin/Globulin Ratio 1.64 (1.60-3.17); Anion Gap 8.8 mmol/L (4.00-12.00); BUN/Creat Ratio 26.25 Ratio (12.00-20.00); Calcium 10.1 mg/dL (8.7-10.3); Carbon Dioxide 29.2 mmol/L (21.6-31.8); Globulin 2.8 g/dL (1.6-3.3); Non-African American GFR(CKD) 80.7 (60.0-200.0); Potassium 4.5 mmol/L (3.5-5.5); Total Bilirubin 0.4 mg/dL (0.2-1.2); Total Protein 7.4 g/dL (6.2-8.2)
[2020-02-08 23:28] LABS: INR 0.96 (0.90-1.11); Partial Thromboplastin Time 27.8 sec (23.5-31.0); Prothrombin Time 10.6 sec (9.9-11.9)
== END | disposition home or self-care (01) ==
LOC: LABWHC1 09:51
PROVIDERS: ATTEND Nurse Practitioner Gerontology
DX: E11.9 Type 2 diabetes mellitus without complications (principal); R79.9 Abnormal finding of blood chemistry, unspecified
CPT/HCPCS: 36415; 80053; 85025; 85610; 85730

== ENCOUNTER → 2020-02-18 | Outpatient (CLI) | payer OTHER | END | disposition home or self-care (01) | LOC: LABPAT 07:08 | PROVIDERS: ATTEND Orthopaedic Surgery | DX: Z01.812 Encounter for preprocedural laboratory examination (principal) | CPT/HCPCS: 87070 ==

== ENCOUNTER → 2020-02-26 | Outpatient (CLI) | payer OTHER ==
[2020-02-26 08:07] LABS: Basophils # (A) 0.1 k/uL (0-0.2); Basophils % (A) 1 %; Eosinophils # (A) 0.1 k/uL (0-0.7); Eosinophils % (A) 1 %; HCT 42.6 % (34.0-46.0); HGB 14.2 gm/dL (11.4-16.0); Lymphocytes # (A) 2.3 k/uL (1.0-4.8); Lymphocytes % (A) 25 %; MCH 30.6 pg (25.0-35.0); MCHC 33.3 g/dL (31.0-37.0); MCV 92.2 fL (80.0-100.0); Mean Platelet Volume 6.9; Monocytes # (A) 0.5 k/uL (0-1.0); Monocytes % (A) 6 %; Neutrophils # (A) 5.9 k/uL (1.3-7.7); Neutrophils % (A) 65 %; Platelet Count 343 k/uL (150-450); RBC 4.62 m/uL (3.80-5.40); RDW 12.4 % (11.5-15.5); WBC 9.1 k/uL (3.8-10.6)
[2020-02-26 10:49] LABS: % Iron Saturation 21.1 (12.00-45.00); African American GFR (CKD) 71.4 (60.0-200.0); Albumin 4.6 g/dL (3.80-4.90); Albumin/Globulin Ratio 1.84 (1.60-3.17); Anion Gap 9.4 mmol/L (4.00-12.00); Calcium 9.9 mg/dL (8.7-10.3); Carbon Dioxide 27.6 mmol/L (21.6-31.8); Chol/HDL Ratio 4.43; Globulin 2.5 g/dL (1.6-3.3); LDL Cholesterol,Calculated 111.8 mg/dL (0.0-131.0); Magnesium 1.9 mg/dL (1.5-2.4); Non-African American GFR(CKD) 61.6 (60.0-200.0); Potassium 4.1 mmol/L (3.5-5.5); Total Bilirubin 0.6 mg/dL (0.3-1.2); Total Protein 7.1 g/dL (6.2-8.2); VLDL Calculation 25.2 mg/dL (5.00-40.00)
[2020-02-26 10:57] LABS: Ferritin 89.8 ng/mL (10.0-291.0)
[2020-02-26 11:30] LABS: Protein, Total 7.1 g/dL (6.2-8.2)
[2020-02-26 11:59] LABS: Ceruloplasmin 27.1 mg/dL (20.0-60.0)
[2020-02-26 14:21] LABS: Hemoglobin A1C 5.4 % (4.0-6.0)
== END | disposition home or self-care (01) ==
LOC: LABWHC1 07:14
PROVIDERS: ATTEND Internal Medicine Gastroenterology
DX: I10 Essential (primary) hypertension (principal); R94.5 Abnormal results of liver function studies; E11.9 Type 2 diabetes mellitus without complications; E78.5 Hyperlipidemia, unspecified
CPT/HCPCS: 36415; 80053; 80061; 82103; 82390; 82728; 82977; 83036; 83516; 83540; 83550; 83735; 84165; 85025; 86038

== ENCOUNTER 2020-03-01 06:06 | Day surgery (SDC) | payer OTHER ==
[2020-02-23 09:11] VITALS: BMI 29.2
--- NOTE | 2020-02-29 10:48 | HP ---
HISTORY AND PHYSICAL CHIEF COMPLAINT: Left knee pain. 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 She notes swelling, stiffness, and pain that limits her normal function and activities. She has tried medications in addition had a previous arthritis tried medications in addition to previous injections along with having a left knee arthroscopy in 2018. PAST MEDICAL HISTORY: Significant for arthritis, lxs-ehsdlyc-leobrvcod diabetes and hypertension. PAST SURGICAL HISTORY: Significant for left knee arthroscopy. CURRENT MEDICATIONS: Ibuprofen, omeprazole, aspirin, diltiazem, and metformin. FAMILY HISTORY: Significant for heart disease and cancer. SOCIAL HISTORY: Negative for current tobacco or alcohol use. 16 POINT REVIEW OF SYSTEMS: Otherwise is reviewed and is noncontributory. PHYSICAL EXAMINATION: On examination, the patient is approximately 5 foot 4, 175 pounds of endomorphic habitus. HEENT: Exam is nonfocal. NECK: Supple. She has painless passive motion of her left hip. Straight leg raise is negative. Active motion left knee -4 to 130 degrees of flexion. She is tender about the medial joint line. Collaterals are stable, Pratibha is negative, Wesley's is equivocal. She has a mild effusion. Her distal neurovascular appears intact in the left lower extremity. Weightbearing notch, lateral and Merchant views of the left knee obtained in the office show severe medial and patellofemoral compartment narrowing. IMPRESSION: 1. Left knee severe medial and patellofemoral compartment osteoarthrosis. 2. Non-insulin dependent diabetes. 3. Increased body mass index. RECOMMENDATIONS: I talked to the patient at length regarding her condition along with treatment options. After thorough discussion, she opts to proceed with surgery. We will plan to proceed with left total knee arthroplasty. Risks and benefits were discussed at length in layman's terms. We will institute DVT prophylaxis postoperatively. MMODL / IJN: [id number] /
[~2020-03-01 06:06] MED LIST changes: +ACETAMINOPHEN TAB 500 MG TAB PO PRN; -DEXAMETHASONE SOD PHOSPHATE 10 MG/ML 1 ML VIAL IV ONE; +DEXAMETHASONE SOD PHOSPHATE 4 MG/ML 1 ML VIAL IV ONE; +HYDROmorphone 0.5 MG/0.5 ML SYRINGE IVP PRN; -LACTATED RINGERS 1,000 ML IV SCH; +LIDOCAINE 1% (10MG/ML) FOR IV START INTRADERMA PRN; +MELOXICAM 7.5 MG TAB PO PRN; +ROPIVACAINE 246.25 MG, EPINEPHrine 0.5 MG, KETOROLAC 30 MG, cloNIDine HCL/PF 80 MCG, WA... MISCELLANE PRN; +TRANEXAMIC ACID 1,000 MG in SODIUM CHLORIDE 0.9% 100 ML IVPB PRN; -ceFAZolin IN SWFI 2 GM/20 ML SYRINGE IVP ONE
[2020-03-01] MEDS: LACTATED RINGERS 1,000 ML IV SCH (07:18)
[2020-03-01] MEDS ORDERED: SCOPOLAMINE 1.5MG/72HR PATCH TRANSDERM ONE (07:20)
[2020-03-01 07:21] LABS: Glucose,Whole Blood 91 mg/dL (75-99)
[2020-03-01] MEDS ORDERED: fentaNYL (PF) 50 MCG/ML 2 ML AMP IV ONE (07:38)
[2020-03-01] MEDS ORDERED: SODIUM CHLORIDE 0.9% 100 ML BAG ONE (07:58)
[2020-03-01] MEDS ORDERED: PROPOFOL 10 MG/ML 20 ML VIAL IV ONE (07:58)
[2020-03-01] MEDS ORDERED: MIDAZOLAM 2 MG/2 ML VIAL ONE (07:58)
[2020-03-01] MEDS ORDERED: TRANEXAMIC ACID 1,000 MG/10 ML VIAL ONE (07:58)
[2020-03-01] MEDS ORDERED: HYDROcodone/APAP 7.5-325MG 1 EACH TAB PO PRN ×2 (09:52→09:54)
[2020-03-01] MEDS ORDERED: HYDROmorphone 1 MG/ML 1 ML SYRINGE IVP PRN (09:52)
[2020-03-01] MEDS ORDERED: ONDANSETRON 4 MG/2 ML VIAL IVP PRN (09:52)
[2020-03-01] MEDS ORDERED: HYDROmorphone 0.5 MG/0.5 ML SYRINGE IVP PRN (09:52)
[2020-03-01] MEDS ORDERED: MAGNESIUM HYDROXIDE 2,400 MG/10 ML CUP PO PRN (09:52)
[2020-03-01] MEDS ORDERED: NALOXONE 0.4 MG/ML 1 ML VIAL IV PRN (09:52)
[2020-03-01] MEDS ORDERED: ACETAMINOPHEN TAB 325 MG TAB PO PRN (09:52)
[2020-03-01] MEDS ORDERED: traMADol 50 MG TAB PO PRN (09:52)
[2020-03-01] MEDS ORDERED: ROPIVACAINE 0.2%-NS ON-Q PUMP 1,090 MG, EMPTY PAIN BALL 1 EACH MISCELLANE PRN ×2 (10:20→10:27)
--- NOTE | 2020-03-01 10:20 | P.OP ---
Date of Procedure: 03/01/20 Preoperative Diagnosis: Left knee severe tricompartmental osteoarthrosis Postoperative Diagnosis: Same Procedure(s) Performed: Left total knee arthroplastycementedcruciate retaining Implants: Depuy Attune size 5 narrow cemented femoral component, size 4 cemented tibial component, 11 mm articular surface, 29 mm cemented patellar component. This was a cruciate retaining implant. Anesthesia: regional, local, spinal Surgeon: Justice Ash Transportation Planning Technician #1: Domingo Dunham Estimated Blood Loss (ml): 50 Pathology: other (Bone fragments) Condition: stable Disposition: PACU Indications for Procedure: The patient's a 59-year-old female who presents with progressive left knee pain secondary to osteoarthrosis despite conservative treatment. A discussion of the risks and benefits of operative intervention versus continued conservative measures made with patient. She opted procedure surgery. Operative risks to include infection, neurovascular injury, development of blood clots, possible component loosening, possible component failure need for subsequent procedures was discussed. Informed consent was obtained. Operative Findings: As below Description of Procedure: The patient was brought to the operating room, and after induction of spinal anesthesia the left lower extremity was prepped and draped in a normal fashion. The tourniquet was inflated to 270 mmHg. A longitudinal incision extending 3 finger breaths above the superior pole of the patella extending to the medial aspect the tibial tubercle was then made. The skin and subcutaneous tissues were divided sharply. Electrocautery was used for hemostasis. A medial parapatellar arthrotomy was then performed. The medial soft tissues to include the superficial and deep portions of the medial collateral ligament as well as the medial hamstring tendons were elevated subperiosteally. The proximal medial tibia osteophytes were carefully removed. The patella was everted. The knee was flexed. A portion of the retropatellar fat pad was excised sharply. The anterior cruciate ligament was sacrificed. A starting hole was made in the distal femur 1 cm anterior to the posterior cruciate origin. An intramedullary femoral guide was gently inserted planning on 5 valgus distal cut with 9 mm distal resection. The cutting block was pinned in place. The distal cut was then made. The posterior referencing sizing guide was utilized. 3 of external rotation was built into the system and verified off the trans- epicondylar axis and the posterior condyles. I felt size 5 narrow was most appr opriate. The cutting block was pinned in place. The anterior, posterior, and chamfer cuts were then made. The bone fragments were removed. A sulcus cut was then made with the appropriate guide. The trial size 5 narrow femoral component was then placed and was fully seated. There was good anterior to posterior and medial to lateral fit. The distal peg holes were then drilled. The trial comp onent was then removed. Attention was then paid towards preparing the proximal tibia. An extra medullary guide was utilized in line with the tibial shaft and second metatarsal distally. A 7 posterior slope was planned. I planned on 2 mm resection from the medial compartment. The cutting block was pinned in place. The proximal tibial cut was then made. The bone was removed in one fragment. The remnants of the medial and lateral menisci were excised the capsule junction with electrocautery. The tibia sized most appropriately at size 4. The posterior osteophytes off the distal femur were carefully removed with a curved osteotome. The trial tibial and femoral components were placed along with 11 millimeters articular surface. I was able to obtain full flexion and extension with good stability with varus and valgus stress. After several flexion and extension cycles, the tibial rotation was marked with electrocautery in line with the medial one third of the tibial tubercle. Attention was then paid towards preparing the patella. A patella reamer was utilized taking this down to 14 mm of bone stock. A good flush cut was made. The patella sized most appropriately at 29 millimeters. The peg holes were then drilled. The trial component was placed. The knee was taken through a range of motion. I had good patellofemoral tracking with no hands technique. The trial components were then removed. The tibia was prepared in the appropriate rotation with appropriate drill and keel punch. The flexion and extension gaps were checked and felt to be symmetric. The posterior soft tissues were injected with ropivacaine. The bony surfaces were prepared with pulsatile lavage and dried. The deep tibial component was then cemented in place and was fully seated. Excess cement was removed. The femoral component was cemented in place and was fully seated. Again excess cement was removed. The trial 11 millimeters surface was then inserted in the knee was put in full extension. The patella component was cemented in place. After the cement had sufficiently hardened, the knee was again taken through a range of motion. Again there was good stability in flexion and extension with varus and valgus stress. The trial articular surface was then removed. The final articular surface was placed and was impacted. Care was taken to avoid any soft tissue interposition. Pulsatile lavage was again utilized. The tourniquet was deflated with approximately 60 minutes total tourniquet time. There was minimal drainage therefore a deep drain was not placed. The medial parapatellar arthrotomy was then closed with #2 Ethibond suture. The subcutaneous tissues were reapproximated interrupted 2-0 Vicryl sutures. The skin was reapproximated with 3-0 subarticular strata fix suture. Skin tape and adhesive was applied. A sterile dressing was applied. The patient was then awoken from sedation and transferred to recovery room in good condition. Blood loss was estimated at 50 milliliters. No complications were incurred. Sponge and needle counts were correct at the end the case. Denis WELCH assisted during the major components this case to include exposure, bone resection, and implantation.
--- NOTE | 2020-03-01 10:29 | P.ANPRN ---
Procedure Note - Anesthesia - Nerve Block Performed Left Adductor Canal Time Out Performed: Yes (07:37) Date of Procedure: 03/01/20 Procedure Start Time: :37 Procedure Stop Time: :53 Location of Patient: PreOp Indication: Acute Post-Operative Pain, Requested by Surgeon (Dr Ash) Sedation Type: Sedate with meaningful contact maintained Preparation: Sterile Prep, Sterile Dressing Position: Supine Catheter: Indwelling Needle Types: Pajunk Needle Gauge: 21 Ultrasound used to visualize needle placement: Yes Ultrasound used to observe medication spread: Yes Injectate: 0.5% Ropivacaine (see comment for volume) (20cc) Blood Aspirated: No Pain Paresthesia on Injection Noted: No Resistance on Injection: Normal Image Stored and Saved: Yes Events: Uneventful and Well Tolerated
--- NOTE | 2020-03-01 10:55 | XR ---
EXAMINATION TYPE: XR knee limited LT DATE OF EXAM: 03/01/2020 COMPARISON: NONE TECHNIQUE: Two views submitted HISTORY: Post op FINDINGS: There is a prosthetic knee in near anatomic alignment. There is soft tissue edema and emphysema. IMPRESSION: 1. Postoperative change. Appears in near-anatomic alignment
[2020-03-01] MEDS ORDERED: HYDROmorphone 0.5 MG/0.5 ML SYRINGE IVP ONE (12:25)
[2020-03-01 12:44] LABS: Glucose,Whole Blood 154 mg/dL (75-99)
[2020-03-01] MEDS ORDERED: SODIUM CHLORIDE 0.9% 1,000 ML IV ONE (13:13)
[2020-03-01 16:39] LABS: Glucose,Whole Blood 219 mg/dL (75-99)
[2020-03-01 20:02] VITALS: RESP 17
[2020-03-01] MEDS ORDERED: SENNOSIDES-DOCUSATE SODIUM 1 EACH TAB PO SCH (21:00)
[2020-03-01 21:16] LABS: Glucose,Whole Blood 103 mg/dL (75-99)
[2020-03-01] MEDS: INSULIN ASPART (NovoLOG) 100 UNIT/ML VIAL SQ SCH (21:53)
[2020-03-01] MEDS: ENOXAPARIN 30 MG/0.3 ML SYRINGE SQ SCH (21:55)
[2020-03-01] MEDS: metFORMIN 500 MG TAB PO SCH (21:56)
--- NOTE | 2020-03-01 23:32 | P.CONS ---
History of Present Illness - Reason for Consult Consult date: 03/01/20 Medical management Requesting physician: Justice Ash - Chief Complaint Left total knee arthroplasty, hypertension, type 2 diabetes, hyperlipidemia - History of Present Illness 59-year-old female one of Dr. Ramos patient with past medical history of type 2 diabetes, history of TIA, GERD, hypertension hyperlipidemia who has been suffering from severe arthritis and worsening symptom of the left knee for the last year with failure to conservative management. Patient was seen Dr. Foy and schedule elective left total knee arthroplasty with surgery was done today successfully patient was admitted to the medical floor has been feeling well no nausea vomiting and pain is well controlled. Review of Systems CONSTITUTIONAL: Well-developed no acute respiratory distress. EYES: No icterus sclerae, no conjunctivitis. EARS, NOSE, MOUTH, THROAT, and FACE: No sore throat, lymphadenopathy, carotid bruits or deformity. RESPIRATORY: No SOB cough or wheezes. CARDIOVASCULAR: No CP, Palpitation, PND, Orthopnea, or angina. GASTROINTESTINAL: No Abd pain, Nausea or vomiting, no Diarrhea or constipation, No GI Bleed, no distention or masses. GENITOURINARY: Negative for Hematuria or UTI, no kidney stones. INTEGUMENT/BREAST: Negative for any muscular injury with mild osteoarthritis.. Left knee incision looks fine. HEMATOLOGIC/LYMPHATIC: Negative for bleed or purpura. MUSCULOSKELTAL: Negative for Myalgia or arthralgia. NEURLOGICAL: No LOC, Sz or syncope, blurred vision dizziness or abnormality.. BEHAVIORAL/PSYCH: Negative. ENDOCRINE: Negative. Social history: She does not smoke [place] abuse does not use any CPAP BiPAP or any updraft management. Family history: Father age 48 from [place], mother is living 82 with history of skin cancer. P gregorio had 5 siblings are all living and well and, 5 children one was killed in younger age by motor vehicle accident. Past Medical History Past Medical History: Diabetes Mellitus, GERD/Reflux, Hypertension Additional Past Medical History / Comment(s): "Liver enzymes are elevated slightly." History of Any Multi-Drug Resistant Organisms: None Reported Past Surgical History: Ear Surgery, Orthopedic Surgery, Tonsillectomy, Tubal Ligation Additional Past Surgical History / Comment(s): sinus Past Anesthesia/Blood Transfusion Reactions: Motion Sickness, Postoperative Nausea & Vomiting (PONV) Past Psychological History: No Psychological Hx Reported Smoking Status: Never smoker Past Alcohol Use History: Rare Past Drug Use History: None Reported - Past Family History Mother Family Medical History: Cancer, Hypertension Additional Family Medical History / Comment(s): Skin Cancer. Father Family Medical History: Myocardial Infarction ([place]) Additional Family Medical History / Comment(s): Father at 48. Medications and Allergies Home Medications Medication Instructions Recorded Confirmed Type Cholecalciferol [Vitamin D3 (25 5,000 unit PO DAILY 09/24/17 03/01/20 History Mcg = 1000 Iu)] Omeprazole [PriLOSEC] 20 mg PO QAM 09/24/17 03/01/20 History Aspirin 81 mg PO DAILY chew 12/31/18 03/01/20 Rx Diltiazem Cd [Cardizem Cd] 240 mg PO QAM 02/23/20 03/01/20 History Magnesium 200 mg PO DAILY 02/23/20 03/01/20 History Multivitamins, Thera [Multivitamin 1 tab PO DAILY 02/23/20 03/01/20 History (formulary)] Vitamin C/Biotin [Hair, Skin and 1 tab PO DAILY 02/23/20 03/01/20 History Nails] metFORMIN HCL [Glucophage] 500 mg PO BID 02/23/20 03/01/20 History Allergies Allergy/AdvReac Type Severity Reaction Status Date / Time hydrochlorothiazide Allergy Rash/Hives Verified 03/01/20 06:37 Physical Exam Vitals: Vital Signs Temp Pulse Pulse Pulse Resp BP BP 03/01/20 17:56 65 03/01/20 16:00 53 L 106/68 03/01/20 15:45 56 L 110/71 03/01/20 15:30 58 L 107/66 03/01/20 15:15 53 L 105/67 03/01/20 15:00 51 L 102/65 03/01/20 14:45 52 L 104/64 03/01/20 14:30 62 133/64 03/01/20 14:15 56 L 128/80 03/01/20 14:00 98.7 F 78 16 118/67 03/01/20 13:00 66 16 142/84 03/01/20 12:29 63 16 126/62 03/01/20 12:00 67 16 115/61 03/01/20 11:45 67 16 127/66 03/01/20 11:30 64 16 132/65 03/01/20 11:15 71 16 140/66 03/01/20 10:58 66 16 134/70 03/01/20 10:43 70 16 138/68 03/01/20 10:28 77 16 140/69 03/01/20 10:13 97.6 F 85 12 132/71 03/01/20 07:51 57 L 16 147/87 03/01/20 06:40 97.9 F 61 16 145/72 Pulse Ox 03/01/20 17:56 95 03/01/20 16:00 97 03/01/20 15:45 97 03/01/20 15:30 98 03/01/20 15:15 96 03/01/20 15:00 94 L 03/01/20 14:45 96 03/01/20 14:30 98 03/01/20 14:15 97 03/01/20 14:00 96 03/01/20 13:00 100 03/01/20 12:29 98 03/01/20 12:00 98 03/01/20 11:45 99 03/01/20 11:30 99 03/01/20 11:15 90 L 03/01/20 10:58 100 03/01/20 10:43 100 03/01/20 10:28 100 03/01/20 10:13 95 03/01/20 07:51 98 03/01/20 06:40 96 Intake and Output 03/01/20 03/01/20 03/01/20 06:59 14:59 22:59 Intake Total 1000 Output Total 50 300 Balance 950 -300 Intake: IV 1000 Output: Urine 300 Estimated Blood Loss 50 Other: Weight 77.5 kg 77.5 kg General Appearance: Alert, cooperative, no distress, appears stated age. Neck HEENT: Supple, no lymphadenopathy, no thyroid enlargement, no carotid bruits. Lungs: Clear to auscultation without crackles or wheezes no rhonchi, no deformity. Chest Wall: Chest wall normal expansion with deep inspiration no tenderness and no deformity was found on exam, no costochondral pain or discomfort. Heart: Regular rate and rhythm, S1, S2 normal, no murmur, rub or gallop. Back: Symmetric, no curvature, ROM normal, no CVA tenderness. Abdomen: Soft, non-tender, bowel sounds active all four quadrants, no masses, no organomegaly. Extremities: Extremities normal, atraumatic, no cyanosis or edema. Incision on the left knee No hematoma no sign of infection or induration. Pulses: 2+ and symmetric. Skin: Skin color, texture, tugor normal, no rashes or lesions. Neurologic: Alert oriented x3 cranial nerves II through XII intact, no motor deficit, no abnormal balance or gait. Results Labs: Abnormal Lab Results - Last 24 Hours (Table) 03/01/20 03/01/20 Range/Units 12:42 16:38 POC Glucose (mg/dL) 154 H 219 H (75-99) mg/dL Assessment and Plan Assessment: 1 status post left total knee arthroplasty: Still using pain management system patient hemodynamically stable and pain is well controlled. Resume home meds keep watching patient hemodynamic status. 2 Hypertension: Remain well controlled on diltiazem 240 mg daily. 3 type 2 diabetes: Has been on metformin 500 mg twice a day Accu-Chek sliding scales coverage and be done. 4 hyperlipidemia: On diet control. 5 severe GERD and hiatal hernia: Patient has been on omeprazole 20 mg daily. 6 DVT prophylaxis: Patient most likely be on aspirin to go home with. 7 chronic pain management: Patient be on hydrocodone as an outpatient. CODE STATUS: Full code. Dr. Ash thank you very much for the consult if I can be any further help to please let me know.
[2020-03-02 06:52] LABS: Basophils % (A) 0 %; Eosinophils % (A) 0 %; HCT 36.6 % (34.0-46.0); HGB 11.8 gm/dL (11.4-16.0); Lymphocytes # (A) 1.5 k/uL (1.0-4.8); Lymphocytes % (A) 10 %; MCH 30.3 pg (25.0-35.0); MCHC 32.3 g/dL (31.0-37.0); MCV 93.9 fL (80.0-100.0); Mean Platelet Volume 7.3; Monocytes # (A) 0.9 k/uL (0-1.0); Monocytes % (A) 6 %; Neutrophils % (A) 82 %; Platelet Count 290 k/uL (150-450); RBC 3.89 m/uL (3.80-5.40); RDW 12.4 % (11.5-15.5); WBC 14.6 k/uL (3.8-10.6)
[2020-03-02 06:53] LABS: Glucose,Whole Blood 104 mg/dL (75-99)
[2020-03-02] MEDS: INSULIN ASPART (NovoLOG) 100 UNIT/ML VIAL SQ SCH (07:06)
[2020-03-02] MEDS: LACTATED RINGERS 1,000 ML IV SCH (07:06)
--- NOTE | 2020-03-02 07:11 | P.PN ---
Progress Note - Text The patient is status post left adductor canal catheter placement. The catheter was placed for postoperative pain control, status post total left arthroplasty. Ropivacaine 0.2% is infusing at 8 mLs per hour. The patient has no complaints of left lower extremity numbness or weakness. Patient's VAS score is 1 -10. Assessment: Patient's adductor canal catheter is in place and working appropriately. Plan: continue infusion and adjust it as needed.
[2020-03-02] MEDS ORDERED: PANTOPRAZOLE 40 MG TABLET PO SCH (07:30)
[2020-03-02] MEDS: metFORMIN 500 MG TAB PO SCH (07:41)
[2020-03-02] MEDS: ENOXAPARIN 30 MG/0.3 ML SYRINGE SQ SCH (07:42)
[2020-03-02 08:09] VITALS: BP 127/85; PULSE 69; TEMP 97.6
[2020-03-02] MEDS ORDERED: MAGNESIUM OXIDE 400 MG TAB PO SCH (09:00)
[2020-03-02] MEDS ORDERED: NON FORMULARY DRUG (Vitamin C/Biotin [Hair, Skin And Nails] 1 EACH Tab.Chew) PO SCH (09:00)
[2020-03-02] MEDS ORDERED: CHOLECALCIFEROL 1,000 UNIT TAB PO SCH (09:00)
[2020-03-02] MEDS ORDERED: DILTIAZEM CD 240 MG CAP.ER.24H PO SCH (09:00)
[2020-03-02] MEDS ORDERED: MULTIVITAMINS, THERA 1 EACH TAB PO SCH (09:00)
[2020-03-02] MEDS ORDERED: ASPIRIN 81 MG PO SCH (09:00)
[2020-03-02] MEDS ORDERED: FAMOTIDINE 20 MG TAB PO SCH (09:00)
--- NOTE | 2020-03-02 10:10 | P.PN ---
Subjective Progress Note Date: 03/02/20 Principal diagnosis: Status post left total knee arthroplasty Patient evaluated at bedside today, she is resting comfortably. She did very well with physical therapy. Pain is controlled at this time. She denies any headaches, lightheadedness, chest pain or shortness of breath. Objective - Vital Signs Vital signs: Vital Signs Temp 97.6 F 03/02/20 07:28 Pulse 69 03/02/20 07:28 Resp 17 03/02/20 07:28 BP 127/85 03/02/20 07:28 Pulse Ox 95 03/02/20 07:28 Intake & Output 03/01/20 03/02/20 03/02/20 18:59 06:59 18:59 Intake Total 1000 Output Total 700 Balance 300 Weight 77.5 kg Intake: IV 1000 Output: Urine 650 Estimated Blood Loss 50 Other: Voiding Method Toilet Toilet # Voids 4 - Exam Left lower extremity: Incision is clean, dry, and intact. The abductor canal block is in good p osition, no excess swelling in the area. The exofin fusion tape is in good condition. There is minimal soft tissue swelling and ecchymosis surrounding the medial and lateral aspects of the incision. Calf is soft, no tenderness with palpation. Plantar flexion, dorsiflexion, EHL, FHL are intact. Sensory exam to light touch throughout the extremity is intact, dorsal pedis pulses 2+. - Labs CBC & Chem 7: 03/02/20 05:48 Labs: Abnormal Lab Results - Last 24 Hours (Table) 03/01/20 03/01/20 03/01/20 Range/Units 12:42 16:38 21:14 WBC (3.8-10.6) k/uL Neutrophils # (1.3-7.7) k/uL POC Glucose (mg/dL) 154 H 219 H 103 H (75-99) mg/dL 03/02/20 03/02/20 Range/Units 05:48 06:51 WBC 14.6 H (3.8-10.6) k/uL Neutrophils # 12.0 H (1.3-7.7) k/uL POC Glucose (mg/dL) 104 H (75-99) mg/dL Assessment and Plan Assessment: Status post left total knee arthroplasty Plan: Pain control, plan for discharge home on oral pain medication DVT prophylaxis, aspirin 81 mg twice a day Wound care instructions were discussed Icing and elevating techniques discussed Home healthcare discharge Medical recommendations Discharge planning: Stable for discharge home today Time with Patient: Less than 30
--- NOTE | 2020-03-02 10:12 | P.DS ---
Providers Date of admission: 03/01/2020 Expected date of discharge: 03/02/20 Attending physician: Justice Ash Consults: 03/01/20 09:54 Consult Physician Routine Consulting Provider: Jaciel Ramos Consult Reason/Comments: Medical Management Do you want consulting provider notified?: Yes Primary care physician: Jaciel Ramos MD Hospital Course: Date of admission: 03/01/2020 Date of discharge: 03/02/2020 Admission diagnosis: Status post left total knee arthroplasty Discharge diagnosis: Same Attending physician: Dr. Ash Surgical procedures: Left total knee arthroplasty Brief history: Patient is a 59-year-old female with a history of progressive primary left knee osteoarthritis. At this point patient has failed conservative treatment measures and has opted to proceed with a elective left total knee arthroplasty. Hospital course: Details of patient's surgery can be found in operative report. Patient tolerated the procedure well and was subsequently transported to orthopedic floor. Patient's orthopeidc and medical care was provided daily. Patient had daily laboratory tests performed for evaluation of overall blood counts. Patient had daily physical therapy to include strengthening range of motion as well as education with walker ambulation. Patient was treated with Lovenox for their postoperative DVT prophylaxis during their inpatient stay. Denzel perkins was noted to have a relatively uneventful postoperative course. Patient reported satisfactory pain control with oral pain medications by postoperative day 0. Patient showed satisfactory progress with physical therapy. Patient moved steadily through the program and had no difficulty meeting the goals by postoperative day 1. Given patient's otherwise satisfactory course and having met physical therapy goals, plan is to discharge patient home on postoperative day 1. Discharge condition/disposition: Patient will be discharged home in stable condition. Discharge medications: Instructions are given on resumption of patient's normal daily medications per primary care recommendation, in addition patient will be prescribed [place] 7.5 mg/325 mg, Colace 100 mg, aspirin 81 mg. Discharge instructions: 1. Wound care and infection precautions, keep incision dry and covered while showering, no lotions, creams, moisturizers. No soaking, tubs, pools, hottubs. Do not scrub over the incision. 2. Weight-bear as tolerated with walker / cane until follow-up. 3. Ice and elevate when necessary. Do not exceed 20 minutes per hour with ice pack. 4. Utilize compression sleeve until seen at first follow up appointment. 5. Visiting nursing care. 6. Home physical therapy including home CPM. 7. Pain meds and anticoagulants per prescription. 8. Pain medication has potential to cause constipation. Increase oral fluid and fiber intake. Contact primary care provider if you have not had a bowel movement within 48 hours after discharge 9. No anti-inflammatory medication until discussed at first post operative visit, this including Motrin, Aleve, Mobic, Diclofenac 10. Follow up in office at 2 weeks postop with Denis Dunham PA-C 11. Follow up with your primary care doctor 7-10 days after discharge. 12. Contact [facility] with any questions, . Procedures: Left total knee arthroplasty Patient Condition at Discharge: Good Plan - Discharge Summary Discharge Rx Participant: Yes New Discharge Prescriptions: New Sennosides-Docusate Sodium [Senokot-S] 2 each PO HS tab Aspirin [Adult Low Dose Aspirin EC] 81 mg PO BID #60 tablet. Docusate [Colace] 100 mg PO DAILY #30 capsule HYDROcodone/APAP 7.5-325MG [[place] 7.5] 1 - 2 each PO Q6HR PRN #42 tab PRN Reason: Pain Continue Omeprazole [PriLOSEC] 20 mg PO QAM Cholecalciferol [Vitamin D3 (25 Mcg = 1000 Iu)] 5,000 unit PO DAILY metFORMIN HCL [Glucophage] 500 mg PO BID Vitamin C/Biotin [Hair, Skin and Nails] 1 tab PO DAILY Multivitamins, Thera [Multivitamin (formulary)] 1 tab PO DAILY Diltiazem Cd [Cardizem CD] 240 mg PO QAM Magnesium 200 mg PO DAILY Discontinued Aspirin 81 mg PO DAILY chew Discharge Medication List Cholecalciferol [Vitamin D3 (25 Mcg = 1000 Iu)] 5,000 unit PO DAILY 09/24/17 [History] Omeprazole [PriLOSEC] 20 mg PO QAM 09/24/17 [History] Diltiazem Cd [Cardizem CD] 240 mg PO QAM 02/23/20 [History] Magnesium 200 mg PO DAILY 02/23/20 [History] Multivitamins, Thera [Multivitamin (formulary)] 1 tab PO DAILY 02/23/20 [History] Vitamin C/Biotin [Hair, Skin and Nails] 1 tab PO DAILY 11/24/20 [History] metFORMIN HCL [Glucophage] 500 mg PO BID 02/23/20 [History] Aspirin [Adult Low Dose Aspirin EC] 81 mg PO BID #60 tablet. 03/02/20 [Rx] Docusate [Colace] 100 mg PO DAILY #30 capsule 03/02/20 [Rx] HYDROcodone/APAP 7.5-325MG [[place] 7.5] 1 - 2 each PO Q6HR PRN #42 tab 03/02/20 [Rx] Sennosides-Docusate Sodium [Senokot-S] 2 each PO HS tab 03/02/20 [Rx] Follow up Appointment(s)/Referral(s): Jaciel Ramos MD [Primary Care Provider] - 1 Week (has appointment on 03/10) Domingo Dunham PAC [PHYSICIAN SOLAR SYSTEM INSTALLER] - 2 Weeks Activity/Diet/Wound Care/Special Instructions: Orthopedic Discharge Instructions: 1. Wound care and infection precautions, [keep incision dry and covered while showering], no lotions, creams, moisturizers. No soaking, pools, hot tubs. Do not scrub over incision. 2. Weight-bear [as tolerated] with walker / cane until follow-up. 3. Ice and elevate when necessary. Do not exceed 20 minutes per hour with ice pack. 4. Utilize compression sleeve until seen at first follow up appointment. 5. Pain meds and anticoagulants per prescription. 6. Pain medication has potential to cause constipation. Increase oral fluid and fiber intake. Contact primary care provider if you have not had a bowel movement within 48 hours after discharge. 7. No anti-inflammatory medication until discussed at first post operative visit, this including Motrin, Aleve, Mobic, Diclofenac 8. Follow up in office at 2 weeks postop with Denis Dunham PA-C 9. Follow up with your primary care doctor 7-10 days after discharge. 10. Contact [facility] with any questions, . Discharge Disposition: HOME WITH HOME HEALTH SERVICES
--- NOTE | 2020-03-02 14:23 | P.PN ---
Subjective Progress Note Date: 03/02/20 HISTORY OF PRESENT ILLNESS 59-year-old female one of Dr. Ramos patient with past medical history of type 2 diabetes, history of TIA, GERD, hypertension hyperlipidemia who has been suffering from severe arthritis and worsening symptom of the left knee for the last year with failure to conservative management. Patient was seen Dr. Foy and schedule elective left total knee arthroplasty with surgery was done today successfully patient was admitted to the medical floor has been feeling well no nausea vomiting and pain is well controlled. 03/02: Patient has done well overnight. She denies any difficulty with pain control. She has been ambulatory and work with physical therapy. Plan is to return home. She is afebrile, heart rate 69, blood pressure 127/85, pulse ox 95% on room air. Patient is utilizing incentive spirometry. CBC reveals Elvie BC 14.6, hemoglobin 11.8. Medication reconciliation reviewed. Patient is cleared from medicine for discharge home. REVIEW OF SYSTEMS CONSTITUTIONAL: Well-developed no acute respiratory distress. No fever. No chills. With small dressing in place. No breakthrough bleeding or drainage. EYES: No icterus sclerae, no conjunctivitis. EARS, NOSE, MOUTH, THROAT, and FACE: No sore throat, lymphadenopathy, carotid bruits or deformity. RESPIRATORY: No SOB cough or wheezes. CARDIOVASCULAR: No CP, Palpitation, PND, Orthopnea, or angina. GASTROINTESTINAL: No Abd pain, Nausea or vomiting, no Diarrhea or constipation, No GI Bleed, no distention or masses. GENITOURINARY: Negative for Hematuria or UTI, no kidney stones. INTEGUMENT/BREAST: Negative for any muscular injury with mild osteoarthritis.. Left knee incision looks fine. HEMATOLOGIC/LYMPHATIC: Negative for bleed or purpura. MUSCULOSKELTAL: Negative for Myalgia or arthralgia. NEURLOGICAL: No LOC, Sz or syncope, blurred vision dizziness or abnormality.. BEHAVIORAL/PSYCH: Negative. ENDOCRINE: Negative. PHYSICAL EXAMINATION General Appearance: Alert, cooperative, no distress, appears stated age. Neck HEENT: Supple, no lymphadenopathy, no thyroid enlargement, no carotid bruits. Lungs: Clear to auscultation without crackles or wheezes no rhonchi, no deformity. Chest Wall: Chest wall normal expansion with deep inspiration no tenderness and no deformity was found on exam, no costochondral pain or discomfort. Heart: Regular rate and rhythm, S1, S2 normal, no murmur, rub or gallop. Back: Symmetric, no curvature, ROM normal, no CVA tenderness. Abdomen: Soft, non-tender, bowel sounds active all four quadrants, no masses, no organomegaly. Extremities: Extremities normal, atraumatic, no cyanosis or edema. Incision on the left knee No hematoma no sign of infection or induration. Pulses: 2+ and symmetric. Skin: Skin color, texture, tugor normal, no rashes or lesions. Neurologic: Alert oriented x3 cranial nerves II through XII intact, no motor deficit, no abnormal balance or gait. ASSESSMENT AND PLAN 1 status post left total knee arthroplasty, postop day #1: Still using pain management system patient hemodynamically stable and pain is well controlled. Resume home meds keep watching patient hemodynamic status. 2 Hypertension: Remain well controlled on diltiazem 240 mg daily. 3 type 2 diabetes: Has been on metformin 500 mg twice a day Accu-Chek sliding scales coverage and be done. 4 hyperlipidemia: On diet control. 5 severe GERD and hiatal hernia: Patient has been on omeprazole 20 mg daily. 6 DVT prophylaxis: Patient most likely be on aspirin to go home with. 7 chronic pain management: Patient be on hydrocodone as an outpatient. CODE STATUS: Full code. DISCHARGE PLAN Home. Impression and plan of care have been directed as dictated by the signing physician. Arlyn Nava nurse practitioner acting as scribe for signing physician. Objective - Vital Signs Vital signs: Vital Signs Temp 97.6 F 03/02/20 07:28 Pulse 69 03/02/20 07:28 Resp 17 03/02/20 07:28 BP 127/85 03/02/20 07:28 Pulse Ox 95 03/02/20 07:28 Intake & Output 03/01/20 03/02/20 03/02/20 18:59 06:59 18:59 Intake Total 1000 Output Total 700 Balance 300 Weight 77.5 kg Intake: IV 1000 Output: Urine 650 Estimated Blood Loss 50 Other: Voiding Method Toilet # Voids 4 - Labs CBC & Chem 7: 03/02/20 05:48 Labs: Abnormal Lab Results - Last 24 Hours (Table) 03/01/20 03/01/20 03/01/20 Range/Units 12:42 16:38 21:14 WBC (3.8-10.6) k/uL Neutrophils # (1.3-7.7) k/uL POC Glucose (mg/dL) 154 H 219 H 103 H (75-99) mg/dL 03/02/20 03/02/20 Range/Units 05:48 06:51 WBC 14.6 H (3.8-10.6) k/uL Neutrophils # 12.0 H (1.3-7.7) k/uL POC Glucose (mg/dL) 104 H (75-99) mg/dL
[2020-03-02 15:19] LABS: Hemoglobin A1C 5.3 % (4.0-6.0)
== END 2020-03-02 11:17 | disposition home health service (06) ==
LOC: OR 06:06 → 4SSUR 13:13 → OR 03-02 11:17
PROVIDERS: ATTEND Orthopaedic Surgery
DX: M17.12 Unilateral primary osteoarthritis, left knee (principal); E11.9 Type 2 diabetes mellitus without complications; I10 Essential (primary) hypertension; Z86.73 Personal history of transient ischemic attack (TIA), and cerebral infarction without residual deficits; K21.9 Gastro-esophageal reflux disease without esophagitis; G89.29 Other chronic pain; R74.8 Abnormal levels of other serum enzymes; Z98.51 Tubal ligation status; Z98.890 Other specified postprocedural states; Z80.8 Family history of malignant neoplasm of other organs or systems; Z82.49 Family history of ischemic heart disease and other diseases of the circulatory system; Z79.84 Long term (current) use of oral hypoglycemic drugs; Z79.1 Long term (current) use of non-steroidal anti-inflammatories (NSAID); Z79.82 Long term (current) use of aspirin; Z79.891 Long term (current) use of opiate analgesic; Z79.899 Other long term (current) drug therapy; Z88.8 Allergy status to other drugs, medicaments and biological substances
CPT/HCPCS: 97110; 97161; 64448; 76942; 85025; 88300; 83036; 73560; 27447; C1713; C1776; J2250; J0171; J1100; J0690; J2405; J3010; J1885; J1650 ×2; J2795 ×2; J2704; J0735; J1170

== ENCOUNTER → 2020-03-28 | Outpatient (CLI) | payer OTHER ==
[2020-03-28 10:32] LABS: African American GFR (CKD) 93.5 (60.0-200.0); Albumin 4.7 g/dL (3.80-4.90); Albumin/Globulin Ratio 1.96 (1.60-3.17); Anion Gap 5.2 mmol/L (4.00-12.00); BUN/Creat Ratio 22.5 Ratio (12.00-20.00); Calcium 10.1 mg/dL (8.7-10.3); Carbon Dioxide 32.8 mmol/L (21.6-31.8); Globulin 2.4 g/dL (1.6-3.3); Non-African American GFR(CKD) 80.7 (60.0-200.0); Potassium 4.5 mmol/L (3.5-5.5); Total Bilirubin 0.5 mg/dL (0.2-1.2); Total Protein 7.1 g/dL (6.2-8.2)
== END | disposition home or self-care (01) ==
LOC: LABWHC1 07:33
PROVIDERS: ATTEND Internal Medicine Gastroenterology
DX: R89.4 Abnormal immunological findings in specimens from other organs, systems and tissues (principal)
CPT/HCPCS: 36415; 80053

== ENCOUNTER → 2020-04-22 | Outpatient (CLI) | payer OTHER ==
[2020-04-22 16:56] LABS: African American GFR (CKD) 81.1 (60.0-200.0); Albumin 4.9 g/dL (3.80-4.90); Albumin/Globulin Ratio 2.04 (1.60-3.17); Anion Gap 7.2 mmol/L (4.00-12.00); BUN/Creat Ratio 33.33 Ratio (12.00-20.00); Calcium 10.1 mg/dL (8.7-10.3); Carbon Dioxide 27.8 mmol/L (21.6-31.8); Globulin 2.4 g/dL (1.6-3.3); Total Bilirubin 0.5 mg/dL (0.3-1.2); Total Protein 7.3 g/dL (6.2-8.2)
== END | disposition home or self-care (01) ==
LOC: LABWHC1 09:37
PROVIDERS: ATTEND Internal Medicine Gastroenterology
DX: R89.4 Abnormal immunological findings in specimens from other organs, systems and tissues (principal)
CPT/HCPCS: 36415; 80053

== ENCOUNTER → 2020-05-25 | Outpatient (CLI) | payer OTHER ==
[2020-05-25 10:33] LABS: Basophils # (A) 0.06 X 10*3/uL (0.00-0.10); Basophils % (A) 0.9 %; Eosinophils # (A) 0.26 X 10*3/uL (0.04-0.35); Eosinophils % (A) 3.9 %; HGB 13.3 g/dL (12.0-15.0); Lymphocytes # (A) 2.34 X 10*3/uL (0.90-5.00); Lymphocytes % (A) 34.8 %; MCH 29.4 pg (27.0-32.0); MCHC 31.7 g/dL (32.0-37.0); MCV 92.9 fL (80.0-97.0); Mean Platelet Volume 9.1 fL (9.5-12.2); Monocytes % (A) 8.9 %; Neutrophils # (A) 3.44 X 10*3/uL (1.80-7.70); Neutrophils % (A) 51.2 %; Platelet Count 353 X 10*3/uL (140-440); RBC 4.52 X 10*6/uL (4.10-5.20); RDW 12.5 % (11.5-14.5); WBC 6.72 X 10*3/uL (4.50-10.00)
[2020-05-25 15:44] LABS: Hemoglobin A1C 5.5 % (4.0-6.0)
[2020-05-25 21:29] LABS: African American GFR (CKD) 93.5 (60.0-200.0); Albumin 4.7 g/dL (3.80-4.90); Albumin/Globulin Ratio 1.96 (1.60-3.17); Anion Gap 6.6 mmol/L (4.00-12.00); BUN/Creat Ratio 23.75 Ratio (12.00-20.00); Calcium 9.8 mg/dL (8.7-10.3); Carbon Dioxide 29.4 mmol/L (21.6-31.8); Chol/HDL Ratio 4.68; Globulin 2.4 g/dL (1.6-3.3); Non-African American GFR(CKD) 80.7 (60.0-200.0); Potassium 4.1 mmol/L (3.5-5.5); Total Bilirubin 0.5 mg/dL (0.2-1.2); Total Protein 7.1 g/dL (6.2-8.2)
== END | disposition home or self-care (01) ==
LOC: LABWHC1 07:23
PROVIDERS: ATTEND Internal Medicine
DX: I10 Essential (primary) hypertension (principal); E11.9 Type 2 diabetes mellitus without complications; E78.2 Mixed hyperlipidemia; R79.9 Abnormal finding of blood chemistry, unspecified; R89.4 Abnormal immunological findings in specimens from other organs, systems and tissues
CPT/HCPCS: 36415; 80053; 80061; 83036; 85025

== ENCOUNTER → 2020-08-31 | Outpatient (CLI) | payer OTHER ==
[2020-08-31 15:05] LABS: HCT 41.8 % (37.2-46.3); HGB 13.3 g/dL (12.0-15.0); MCH 29.8 pg (27.0-32.0); MCHC 31.8 g/dL (32.0-37.0); MCV 93.5 fL (80.0-97.0); Mean Platelet Volume 9.7 fL (9.5-12.2); Platelet Count 356 X 10*3/uL (140-440); RBC 4.47 X 10*6/uL (4.10-5.20); RDW 13.2 % (11.5-14.5); WBC 6.38 X 10*3/uL (4.50-10.00)
[2020-08-31 18:21] LABS: Hemoglobin A1C 5.2 % (4.0-6.0)
[2020-09-01 00:10] LABS: African American GFR (CKD) 93.5 (60.0-200.0); Albumin 4.5 g/dL (3.80-4.90); Albumin/Globulin Ratio 1.67 (1.60-3.17); Anion Gap 10.2 mmol/L (4.00-12.00); BUN/Creat Ratio 22.5 Ratio (12.00-20.00); Calcium 10.3 mg/dL (8.7-10.3); Carbon Dioxide 23.8 mmol/L (21.6-31.8); Chol/HDL Ratio 4.78; Globulin 2.7 g/dL (1.6-3.3); LDL Cholesterol,Calculated 112.4 mg/dL (0.0-131.0); Non-African American GFR(CKD) 80.7 (60.0-200.0); Potassium 4.5 mmol/L (3.5-5.5); Total Bilirubin 0.6 mg/dL (0.2-1.2); Total Protein 7.2 g/dL (6.2-8.2); VLDL Calculation 38.6 mg/dL (5.00-40.00)
== END | disposition home or self-care (01) ==
LOC: LABWHC1 08:11
PROVIDERS: ATTEND Internal Medicine
DX: E11.9 Type 2 diabetes mellitus without complications (principal); I10 Essential (primary) hypertension
CPT/HCPCS: 36415; 80053; 80061; 83036; 85027

== ENCOUNTER → 2020-12-16 | Outpatient (CLI) | payer OTHER ==
[2020-12-16 23:44] LABS: African American GFR (CKD) 80.5 (60.0-200.0); Albumin 4.8 g/dL (3.80-4.90); Albumin/Globulin Ratio 1.85 (1.60-3.17); Anion Gap 12.2 mmol/L (4.00-12.00); BUN/Creat Ratio 24.44 Ratio (12.00-20.00); Carbon Dioxide 23.8 mmol/L (21.6-31.8); Globulin 2.6 g/dL (1.6-3.3); Non-African American GFR(CKD) 69.5 (60.0-200.0); Potassium 4.3 mmol/L (3.5-5.5); Total Bilirubin 0.4 mg/dL (0.3-1.2); Total Protein 7.4 g/dL (6.2-8.2)
== END | disposition home or self-care (01) ==
LOC: LABWHC1 08:03
PROVIDERS: ATTEND Internal Medicine Gastroenterology
DX: R89.4 Abnormal immunological findings in specimens from other organs, systems and tissues (principal)
CPT/HCPCS: 36415; 80053

== ENCOUNTER → 2021-03-01 | Outpatient (CLI) | payer OTHER ==
[2021-03-01 11:46] LABS: HCT 42.1 % (37.2-46.3); HGB 13.5 g/dL (12.0-15.0); MCH 29.9 pg (27.0-32.0); MCHC 32.1 g/dL (32.0-37.0); MCV 93.1 fL (80.0-97.0); Mean Platelet Volume 9.7 fL (9.5-12.2); Platelet Count 327 X 10*3/uL (140-440); RBC 4.52 X 10*6/uL (4.10-5.20); RDW 12.6 % (11.5-14.5); WBC 5.94 X 10*3/uL (4.50-10.00)
[2021-03-01 12:06] LABS: ALT 20 U/L (8-44); AST 20 U/L (13-35); African American GFR (CKD) 92.9 (60.0-200.0); Albumin 4.5 g/dL (3.8-4.9); Alkaline Phosphatase 113 U/L (41-126); BUN/Creat Ratio 20.63 Ratio (12.00-20.00); Blood Urea Nitrogen 16.5 mg/dL (9.0-27.0); Carbon Dioxide 23.4 mmol/L (20.0-27.5); Chloride 105 mmol/L (96-109); Chol/HDL Ratio 3.95 Ratio; Globulin 2.5 g/dL (1.6-3.3); Glucose 102 mg/dL (70-110); LDL Cholesterol,Calculated 94.5 mg/dL (0.0-131.0); Non-African American GFR(CKD) 80.1 (60.0-200.0); Potassium 4.7 mmol/L (3.5-5.5); Sodium 142 mmol/L (135-145)
== END | disposition home or self-care (01) ==
LOC: LABWHC1 07:11
PROVIDERS: ATTEND Internal Medicine
DX: I10 Essential (primary) hypertension (principal); E11.9 Type 2 diabetes mellitus without complications; E78.2 Mixed hyperlipidemia
CPT/HCPCS: 36415; 80053; 80061; 83036; 85027

== ENCOUNTER → 2021-04-28 | Outpatient (CLI) | payer OTHER ==
--- NOTE | 2021-05-01 11:09 | MM ---
Reason for exam: screening (asymptomatic). Last mammogram was performed 1 year and 6 months ago. History: Patient is postmenopausal. Family history of breast cancer in 2 aunts. Benign excisional biopsy of the right breast. Physical Findings: A clinical breast exam by your physician is recommended on an annual basis and results should be correlated with mammographic findings. MG 3D Screening Mammo W/Cad Bilateral CC and MLO view(s) were taken. Prior study comparison: October 19, 2019, bilateral MG 3d work up w/cad [facility]. October 12, 2019, bilateral MG 3d screening mammo w/cad. There are scattered fibroglandular densities. Previous mammotome biopsy in the right breast. There is chronic nodularity bilaterally. No significant changes when compared with prior studies. ASSESSMENT: Benign, BI-RAD 2 RECOMMENDATION: Routine screening mammogram of both breasts in 1 year.
== END | disposition home or self-care (01) ==
LOC: RADMAMWWP 15:28
PROVIDERS: ATTEND Internal Medicine
DX: Z12.31 Encounter for screening mammogram for malignant neoplasm of breast (principal); Z78.0 Asymptomatic menopausal state; Z80.3 Family history of malignant neoplasm of breast
CPT/HCPCS: 77063; 77067

== ENCOUNTER → 2021-09-26 | Outpatient (CLI) | payer OTHER ==
[2021-09-26 11:06] LABS: HGB 13.8 g/dL (12.0-15.0); MCH 29.1 pg (27.0-32.0); MCHC 32.1 g/dL (32.0-37.0); MCV 90.7 fL (80.0-97.0); Mean Platelet Volume 9.4 fL (9.5-12.2); NRBC Per 100 WBC 0 /100 WBCS (0.0-0.0); Platelet Count 332 X 10*3/uL (140-440); RBC 4.74 X 10*6/uL (4.10-5.20); RDW 12.7 % (11.5-14.5); WBC 5.91 X 10*3/uL (4.50-10.00)
[2021-09-26 11:23] LABS: ALT 22 U/L (8-44); AST 18 U/L (13-35); African American GFR (CKD) 92.2 (60.0-200.0); Albumin 4.8 g/dL (3.8-4.9); Albumin/Globulin Ratio 1.78 (1.60-3.17); Alkaline Phosphatase 121 U/L (41-126); BUN/Creat Ratio 24.88 Ratio (12.00-20.00); Blood Urea Nitrogen 19.9 mg/dL (9.0-27.0); Carbon Dioxide 26.8 mmol/L (20.0-27.5); Chloride 103 mmol/L (96-109); Chol/HDL Ratio 4.63 Ratio; Globulin 2.7 g/dL (1.6-3.3); Glucose 97 mg/dL (70-110); Non-African American GFR(CKD) 79.6 (60.0-200.0); Potassium 4.4 mmol/L (3.5-5.5); Sodium 141 mmol/L (135-145); Total Protein 7.5 g/dL (6.2-8.2)
== END | disposition home or self-care (01) ==
LOC: LABWHC1 07:14
PROVIDERS: ATTEND Nurse Practitioner Gerontology
DX: E11.9 Type 2 diabetes mellitus without complications (principal); E78.5 Hyperlipidemia, unspecified
CPT/HCPCS: 36415; 80053; 80061; 83036; 85027

== ENCOUNTER → 2021-12-11 | Outpatient (CLI) | payer OTHER | END | disposition home or self-care (01) | LOC: LABPAT 07:43 | PROVIDERS: ATTEND Orthopaedic Surgery | DX: Z53.9 Procedure and treatment not carried out, unspecified reason (principal) ==

== ENCOUNTER → 2021-12-11 | Outpatient (CLI) | payer OTHER ==
--- NOTE | 2021-12-11 09:14 | XR ---
EXAMINATION TYPE: XR chest 2V DATE OF EXAM: 12/11/2021 9:07 AM COMPARISON: None TECHNIQUE: XR chest 2V Frontal and lateral views of the chest. CLINICAL INDICATION:Female, 61 years old with history of [id number]; FINDINGS: Lungs/Pleura: There is no evidence of pleural effusion, focal consolidation, or pneumothorax. Pulmonary vascularity: Unremarkable. Heart/mediastinum: Cardiomediastinal silhouette is unremarkable. Musculoskeletal: Multiple level degenerative disc disease changes seen throughout the spine. IMPRESSION: No acute cardiopulmonary disease/process.
== END | disposition home or self-care (01) ==
LOC: RADXRMAIN 08:46
PROVIDERS: ATTEND Family Medicine
DX: Z01.818 Encounter for other preprocedural examination (principal)
CPT/HCPCS: 71046

== ENCOUNTER → 2021-12-11 | Outpatient (CLI) | payer OTHER ==
[2021-12-11 14:46] LABS: African American GFR (CKD) 77.9 (60.0-200.0); Albumin 4.6 g/dL (3.8-4.9); Albumin/Globulin Ratio 1.46 (1.60-3.17); Anion Gap 9.5 mmol/L (10.00-18.00); BUN/Creat Ratio 27.61 Ratio (12.00-20.00); Blood Urea Nitrogen 25.4 mg/dL (9.0-27.0); Carbon Dioxide 27.6 mmol/L (20.0-27.5); Globulin 3.2 g/dL (1.6-3.3); Non-African American GFR(CKD) 67.2 (60.0-200.0); Potassium 4.9 mmol/L (3.5-5.5); Total Bilirubin 0.5 mg/dL (0.30-1.20); Total Protein 7.7 g/dL (6.2-8.2)
== END | disposition home or self-care (01) ==
LOC: LABWHC1 07:47
PROVIDERS: ATTEND Internal Medicine Gastroenterology
DX: R89.4 Abnormal immunological findings in specimens from other organs, systems and tissues (principal)
CPT/HCPCS: 36415; 80053

== ENCOUNTER → 2021-12-15 | Outpatient (CLI) | payer OTHER | END | disposition home or self-care (01) | LOC: LABPAT 11:42 | PROVIDERS: ATTEND Orthopaedic Surgery | DX: Z01.812 Encounter for preprocedural laboratory examination (principal); M17.11 Unilateral primary osteoarthritis, right knee; Z22.322 Carrier or suspected carrier of Methicillin resistant Staphylococcus aureus | CPT/HCPCS: 87070 ==

== ENCOUNTER → 2022-01-01 | Outpatient (CLI) | payer OTHER ==
[2022-01-01 10:11] LABS: Basophils # (A) 0.04 X 10*3/uL (0.00-0.10); Basophils % (A) 0.7 %; Eosinophils # (A) 0.21 X 10*3/uL (0.04-0.35); Eosinophils % (A) 3.4 %; HCT 44.3 % (37.2-46.3); HGB 14.2 g/dL (12.0-15.0); Immature Grans, Automated 0.5 %; Lymphocytes # (A) 2.07 X 10*3/uL (0.90-5.00); Lymphocytes % (A) 33.9 %; MCH 29.5 pg (27.0-32.0); MCHC 32.1 g/dL (32.0-37.0); MCV 92.1 fL (80.0-97.0); Mean Platelet Volume 9.8 fL (9.5-12.2); Monocytes % (A) 11.5 %; NRBC Per 100 WBC 0 /100 WBCS (0.0-0.0); Neutrophils # (A) 3.06 X 10*3/uL (1.80-7.70); Platelet Count 346 X 10*3/uL (140-440); RBC 4.81 X 10*6/uL (4.10-5.20); RDW 12.6 % (11.5-14.5); WBC 6.11 X 10*3/uL (4.50-10.00)
[2022-01-01 10:30] LABS: ALT 25 U/L (8-44); AST 22 U/L (13-35); Albumin 4.7 g/dL (3.8-4.9); Albumin/Globulin Ratio 1.74 (1.60-3.17); Alkaline Phosphatase 141 U/L (41-126); BUN/Creat Ratio 23.56 Ratio (12.00-20.00); Blood Urea Nitrogen 21.2 mg/dL (9.0-27.0); Carbon Dioxide 28.8 mmol/L (20.0-27.5); Chloride 100 mmol/L (96-109); Chol/HDL Ratio 4.18 Ratio; Globulin 2.7 g/dL (1.6-3.3); Glucose 95 mg/dL (70-110); LDL Cholesterol,Calculated 107.7 mg/dL (0.0-131.0); Potassium 4.8 mmol/L (3.5-5.5); Sodium 137 mmol/L (135-145); Total Protein 7.4 g/dL (6.2-8.2); Uric Acid 3.8 mg/dL (2.9-7.7)
[2022-01-01 11:07] LABS: Appearance,Urine Cloudy (Clear); Bilirubin,Urine Negative (Negative); Blood,Urine Negative (Negative); Color,Urine Yellow (Yellow); Ketones,Urine Negative (Negative); Nitrite,Urine Negative (Negative); PH, Urine 6.5 (5.0-8.0); Specific Gravity,Urine 1.021 (1.001-1.030)
[2022-01-01 11:22] LABS: Bacteria,Urine None Seen /HPF (None Seen); Calcium Oxalate Crystals,Urine Present /LPF (None Seen)
[2022-01-01 11:35] LABS: Microalbumin Creatinine Ratio <30 mg/g Creat (0-30)
[2022-01-01 12:31] LABS: INR 0.94 (0.90-1.11); Prothrombin Time 10.4 sec (9.9-11.9)
== END | disposition home or self-care (01) ==
LOC: LABWHC1 07:01
PROVIDERS: ATTEND Family Medicine
DX: E11.9 Type 2 diabetes mellitus without complications (principal); E78.5 Hyperlipidemia, unspecified; D68.8 Other specified coagulation defects; R94.5 Abnormal results of liver function studies; M17.11 Unilateral primary osteoarthritis, right knee
CPT/HCPCS: 36415; 80053; 80061; 81001; 82043; 82570; 83036; 84443; 84550; 85025; 85610; 87086

== ENCOUNTER 2022-01-30 05:43 | Observation (INO) | payer OTHER ==
[2022-01-25 13:18] VITALS: BMI 28.3
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
[~2022-01-30 05:43] MED LIST changes: -DEXAMETHASONE SOD PHOSPHATE 4 MG/ML 1 ML VIAL IV ONE; -HYDROmorphone 0.5 MG/0.5 ML SYRINGE IVP PRN; -LIDOCAINE 1% (10MG/ML) FOR IV START INTRADERMA PRN; -MIDAZOLAM 2 MG/2 ML VIAL IV PRN; -ONDANSETRON 4 MG/2 ML VIAL IVP ONE; -ROPIVACAINE 246.25 MG, EPINEPHrine 0.5 MG, KETOROLAC 30 MG, cloNIDine HCL/PF 80 MCG, WA... MISCELLANE PRN; -TRANEXAMIC ACID 1,000 MG in SODIUM CHLORIDE 0.9% 100 ML IVPB PRN; +TRANEXAMIC ACID IN NACL,ISO-OS 1,000 MG in SALINE 1 100ML.BAG IVPB PRN
[2022-01-30] MEDS ORDERED: ONDANSETRON 4 MG/2 ML VIAL IVP ONE ×2 (06:04→11:44)
[2022-01-30] MEDS ORDERED: DEXAMETHASONE SOD PHOSPHATE 4 MG/ML 1 ML VIAL IV ONE (06:04)
[2022-01-30] MEDS ORDERED: ACETAMINOPHEN TAB 500 MG TAB ONE (06:31)
[2022-01-30] MEDS: LACTATED RINGERS 1,000 ML IV SCH (06:40)
[2022-01-30] MEDS ORDERED: LIDOCAINE 1% (10MG/ML) FOR IV START INTRADERMA ONE (06:40)
[2022-01-30 06:56] LABS: Glucose,Whole Blood 104 mg/dL (70-110)
[2022-01-30] MEDS ORDERED: SCOPOLAMINE 1 MG/72 HR PATCH TRANSDERM ONE (07:00)
[2022-01-30] MEDS ORDERED: MIDAZOLAM 2 MG/2 ML VIAL IV ONE (07:21)
[2022-01-30] MEDS ORDERED: TRANEXAMIC ACID IN NACL,ISO-OS 1,000 MG/100 ML BAG ONE (07:44)
[2022-01-30] MEDS ORDERED: ePHEDrine 50 MG/ML 1 ML VIAL ONE (07:44)
[2022-01-30] MEDS ORDERED: WATER FOR INJECTION, STERILE 10 ML VIAL IV ONE (07:44)
[2022-01-30] MEDS ORDERED: DEXAMETHASONE SOD PHOSPHATE 10 MG/ML 1 ML VIAL ONE (07:44)
[2022-01-30] MEDS ORDERED: MIDAZOLAM 2 MG/2 ML VIAL ONE (07:44)
[2022-01-30] MEDS ORDERED: GLYCOPYRROLATE 0.2 MG/ML 2 ML VIAL ONE (07:44)
[2022-01-30] MEDS ORDERED: ROPIVACAINE 5 MG/ML 30 ML VIAL ONE (07:44)
[2022-01-30] MEDS ORDERED: PROPOFOL 10 MG/ML 20 ML VIAL IV ONE (07:44)
[2022-01-30] MEDS ORDERED: ceFAZolin 1,000 MG in SODIUM CHLORIDE 0.9% 1,000 ML IRRIGATION ONE (08:20)
[2022-01-30] MEDS ORDERED: LACTATED RINGERS 1,000 ML IV ONE (08:55)
[2022-01-30] MEDS ORDERED: HYDROcodone/APAP 5-325MG 1 EACH TAB PO PRN (09:20)
[2022-01-30] MEDS ORDERED: HYDROmorphone 1 MG/ML 1 ML SYRINGE IVP PRN (09:20)
[2022-01-30] MEDS ORDERED: NALOXONE 0.4 MG/ML 1 ML VIAL IV PRN (09:20)
--- NOTE | 2022-01-30 09:50 | P.OP ---
Date of Procedure: 01/30/22 Preoperative Diagnosis: Right knee severe tricompartmental osteoarthrosis Postoperative Diagnosis: Same Procedure(s) Performed: Right total knee arthroplastycementedcruciate retaining Implants: Depuy Attune size 5 narrow cemented femoral component, size 4 cemented tibial component, 10 mm articular surface, 32 mm cemented patellar component. This is a cruciate retaining implant. Anesthesia: regional, spinal Surgeon: Justice Ash Turn Operator #1: Jefferson Kahn Estimated Blood Loss (ml): 50 Pathology: other (Bone fragments) Condition: stable Disposition: PACU Indications for Procedure: The patient's a 61-year-old female presents with progressive right knee pain secondary to osteoarthrosis despite conservative measures. A discussion of the risks and benefits of operative intervention versus continued conservative measures was made with patient. She opted to proceed with surgery. Operative risks to include infection, fracture, neurovascular injury, development of blood clots, possible component loosening/failure and possible need for subsequent procedures was discussed. Informed consent was obtained. Operative Findings: As below Description of Procedure: The patient was brought to the operating room, and after induction of spinal anesthesia the right lower extremity was prepped and draped in a normal fashion. The tourniquet was inflated to 270 mmHg. A longitudinal incision extending 3 finger breaths above the superior pole of the patella extending to the medial aspect the tibial tubercle was then made. The skin and subcutaneous tissues were divided sharply. Electrocautery was used for hemostasis. A medial parapatellar arthrotomy was then performed. The medial soft tissues to include the superficial and deep portions of the medial collateral ligament as well as the medial hamstring tendons were elevated subperiosteally. The proximal medial tibia osteophytes were carefully removed. The patella was everted. The knee was flexed. A portion of the retropatellar fat pad was excised sharply. The anterior cruciate ligament was sacrificed. A starting hole was made in the distal femur 1 cm anterior to the posterior cruciate origin. An intramedullary femoral guide was gently inserted planning on 5 valgus distal cut with 9 mm distal resection. The cutting block was pinned in place. The distal cut was then made. The posterior referencing sizing guide was utilized. 3 of external rotation was built into the system and verified off the trans- epicondylar axis and the posterior condyles. I felt size 5 narrow was most appropriate. The cutting block was pinned in place. The anterior, posterior, and chamfer cuts were then made. The bone fragments were removed. A sulcus cut was then made with the appropriate guide. The trial size 5 narrow femoral component was then placed and was fully seated. There was good anterior to posterior and medial to lateral fit. The distal peg holes were then drilled. The trial component was then removed. Attention was then paid towards preparing the proximal tibia. An extra medullary guide was utilized in line with the tibial shaft and second metatarsal distally. A 7 posterior slope was planned. I planned on 2 mm resection from the medial compartment. The cutting block was pinned in place. The proximal tibial cut was then made. The bone was removed in one fragment. The remnants of the medial and lateral menisci were excised the capsule junction with electrocautery. The tibia sized most appropriately at size 4. The posterior osteophytes off the distal femur were carefully removed with a curved osteotome. The trial tibial and femoral components were placed along with a 10 millimeters articular surface. I was able to obtain full flexion and extension with good stability with varus and valgus stress. After several flexion and extension cycles, the tibial rotation was marked with electrocautery in line with the medial one third of the tibial tubercle. A ttention was then paid towards preparing the patella. A patella reamer was utilized taking this down to 14 mm of bone stock. A good flush cut was made. The patella sized most appropriately at 32 millimeters. The peg holes were then drilled. The trial component was placed. The knee was taken through a range of motion. I had good patellofemoral tracking with no hands technique. The trial components were then removed. The tibia was prepared in the appropriate rotation with appropriate drill and keel punch. The flexion and extension gaps were checked and felt to be symmetric. The posterior soft tissues were injected with ropivacaine. The bony surfaces were prepared with pulsatile lavage and dried. The deep tibial component was then cemented in place and was fully seated. Excess cement was removed. The femoral component was cemented in place and was fully seated. Again excess cement was removed. The trial 10 millimeters surface was then inserted in the knee was put in full extension. The patella component was cemented in place. After the cement had sufficiently hardened, the knee was again taken through a range of motion. Again there was good stability in flexion and extension with varus and valgus stress. The trial articular surface was then removed. The final articular surface was placed and was impacted. Care was taken to avoid any soft tissue interposition. Pulsatile lavage was again utilized. The tourniquet was deflated with approximately 60 minutes total tourniquet time. There was minimal drainage therefore a deep drain was not placed. The medial parapatellar arthrotomy was then closed with #2 Ethibond suture. The subcutaneous tissues were reapproximated interrupted 2- 0 Vicryl sutures. The skin was reapproximated with 3-0 subarticular strata fix suture. Skin tape and adhesive was applied. A sterile dressing was applied. The patient was then awoken from sedation and transferred to recovery room in good condition. Blood loss was estimated at 50 milliliters. No complications were incurred. Sponge and needle counts were correct at the end the case. Jefferson WELCH assisted during the major components this case to include exposure, bone resection, and implantation.
[2022-01-30] MEDS: HYDROmorphone 0.5 MG/0.5 ML SYRINGE IVP PRN ×5 (10:00→18:59)
[2022-01-30] MEDS ORDERED: ROPIVACAINE 1,100 MG, SODIUM CHLORIDE 0.9% 500 ML 330 ML, EMPTY PAIN BALL 1 EACH MISCELLANE PRN ×2 (10:11)
--- NOTE | 2022-01-30 10:41 | XR ---
EXAMINATION TYPE: XR knee limited RT DATE OF EXAM: 01/30/2022 COMPARISON: NONE TECHNIQUE: Two views submitted HISTORY: Post op FINDINGS: There is a prosthetic knee in near anatomic alignment. There is soft tissue edema and emphysema. IMPRESSION: 1. Postoperative change. Appears in near-anatomic alignment
--- NOTE | 2022-01-30 11:12 | P.ANPRN ---
Procedure Note - Anesthesia - Nerve Block Performed Right Adductor Canal Infusion Time Out Performed: Yes Date of Procedure: 01/30/22 Procedure Start Time: : Procedure Stop Time: : Location of Patient: PreOp Indication: Acute Post-Operative Pain, Requested by Surgeon Sedation Type: Sedate with meaningful contact maintained Preparation: Sterile Prep, Sterile Dressing Position: Supine Catheter: Indwelling Needle Types: Pajunk Needle Gauge: 21 Ultrasound used to visualize needle placement: Yes Ultrasound used to observe medication spread: Yes Blood Aspirated: No Pain Paresthesia on Injection Noted: No Resistance on Injection: Normal Image Stored and Saved: Yes Events: Uneventful and Well Tolerated (ropi .5% 20cc plus dexamethasone 4mg)
--- NOTE | 2022-01-30 11:13 | P.ANPRN ---
Procedure Note - Anesthesia - Nerve Block Performed Right [place] Single Time Out Performed: Yes Date of Procedure: 01/30/22 Procedure Start Time: 07:29 Procedure Stop Time: 07:32 Location of Patient: PreOp Indication: Acute Post-Operative Pain, Requested by Surgeon Sedation Type: Sedate with meaningful contact maintained Preparation: Sterile Prep Position: Supine Needle Types: Pajunk Needle Gauge: 21 Ultrasound used to visualize needle placement: Yes Ultrasound used to observe medication spread: Yes Blood Aspirated: No Pain Paresthesia on Injection Noted: No Resistance on Injection: Normal Image Stored and Saved: Yes Events: Uneventful and Well Tolerated (ropi .5% 20cc plus dexamethasone 4mg)
[2022-01-30] MEDS ORDERED: ONDANSETRON 4 MG/2 ML VIAL IVP PRN (13:54)
[2022-01-30 16:42] LABS: Glucose,Whole Blood 153 mg/dL (70-110)
[2022-01-30] MEDS: HYDROcodone/APAP 7.5-325MG 1 EACH TAB PO PRN ×2 (17:20→23:00)
[2022-01-30 20:45] LABS: Glucose,Whole Blood 131 mg/dL (70-110)
[2022-01-30] MEDS ORDERED: SENNOSIDES-DOCUSATE SODIUM 1 EACH TAB PO SCH (21:00)
[2022-01-31 02:10] VITALS: RESP 17
[2022-01-31] MEDS: HYDROcodone/APAP 7.5-325MG 1 EACH TAB PO PRN ×2 (04:33→11:37)
[2022-01-31] MEDS: LACTATED RINGERS 1,000 ML IV SCH (05:53)
[2022-01-31 06:38] LABS: Glucose,Whole Blood 114 mg/dL (70-110)
--- NOTE | 2022-01-31 07:18 | P.PN ---
Progress Note - Text Progress Note Date: 01/31/22 Postoperative day # 1 status post total knee arthroplasty, under spinal anesthesia, and adductor canal catheter placed for postoperative analgesia, currently at ropivacaine 0.2% 8 mL per hour and continuous infusion, visual analogue scale is 3/10, patient using oral pain medication for breakthrough pain. Assessment and plan= Acute postoperative pain, adductor canal catheter for pain control, pain is well controlled we'll continue the same management.
[2022-01-31] MEDS ORDERED: RIVAROXABAN 10 MG TAB PO SCH (09:00)
[2022-01-31 09:44] VITALS: BP 163/77; PULSE 58; TEMP 98
--- NOTE | 2022-01-31 10:33 | P.DS ---
Providers Date of admission: 01/30/22 23:19 Expected date of discharge: 01/31/22 Attending physician: Justice Ash Consults: 01/30/22 09:24 Consult Physician Routine Consulting Provider: Leila Hickman Consult Reason/Comments: Medical Management s/p RTKA Do you want consulting provider notified?: Yes Primary care physician: Karen Sinclair Hospital Course: Date of admission: 01/30/2022 Date of discharge: 01/31/2022 Admission diagnosis: Right knee osteoarthritis Discharge diagnosis: Same Attending physician: Dr. Ash Surgical procedures: Right total knee arthroplasty Brief history: Patient is a 61-year-old female with a history of progressive primary right knee osteoarthritis. At this point patient has failed conservative treatment measures and has opted to proceed with a elective right total knee arthroplasty. Hospital course: Details of patient's surgery can be found in operative report. Patient tolerated the procedure well and was subsequently transported to orthopedic floor. Patient's orthopeidc and medical care was provided daily. Patient had daily laboratory tests performed for evaluation of overall blood counts. Patient had daily physical therapy to include strengthening range of motion as well as education with walker ambulation. Patient was treated with Xarelto for their postoperative DVT prophylaxis during their inpatient stay. Patient was noted to have a relatively uneventful postoperative course. Patient reported satisfactory pain control with oral pain medications by postoperative day 1. Patient showed satisfactory progress with physical therapy. Patient moved steadily through the program and had no difficulty meeting the goals by postoperative day 1. Given patient's otherwise satisfactory course and having met physical therapy goals, plan is to discharge patient home with health services on postoperative day 1. Discharge condition/disposition: Patient will be discharged home with health services in stable condition. Discharge medications: Instructions are given on resumption of patient's normal daily medications per primary care recommendation, in addition patient will be prescribed [place]; Colace; Eliquis 2.5 mg BID x 2 weeks. Discharge instructions: 1. Wound care and infection precautions, keep incision dry and covered while showering, no lotions, creams, moisturizers. No soaking, tubs, pools, hottubs. Do not scrub over the incision. 2. Weight-bear as tolerated with walker / cane until follow-up. 3. Ice and elevate when necessary. Do not exceed 20 minutes per hour with ice pack. 4. Utilize compression sleeve until seen at first follow up appointment. 5. Visiting nursing care. 6. Home physical therapy including home CPM. 7. Pain meds and anticoagulants per prescription. 8. Pain medication has potential to cause constipation. Increase oral fluid and fiber intake. Contact primary care provider if you have not had a bowel movement within 48 hours after discharge 9. No anti-inflammatory medication until discussed at first post operative visit, this including Motrin, Aleve, Mobic, Diclofenac. 10. Follow up in office at 2 weeks postop with Denis Dunham PA-C / Jefferson Kahn PA-C 11. Follow up with your primary care doctor 7-10 days after discharge. 12. Contact [facility] with any questions, . Assessment: Right knee osteoarthritis Procedures: Right total knee arthroplasty Patient Condition at Discharge: Good Plan - Discharge Summary Discharge Rx Participant: Yes New Discharge Prescriptions: New Apixaban [Eliquis] 2.5 mg PO BID #60 tab HYDROcodone/APAP 7.5-325MG [Ringgold 7.5] 1 each PO Q6HR PRN #28 tab PRN Reason: Pain Docusate [Colace] 100 mg PO DAILY #30 capsule No Action Omeprazole [PriLOSEC] 20 mg PO QAM Cholecalciferol [Vitamin D3 (25 Mcg = 1000 Iu)] 5,000 unit PO DAILY metFORMIN HCL [Glucophage] 500 mg PO DAILY Vitamin C/Biotin [Hair, Skin and Nails Chew] 1 tab PO DAILY Multivitamins, Thera [Multivitamin (formulary)] 1 tab PO DAILY Diltiazem Cd [Cardizem CD] 240 mg PO QAM Magnesium Oxide [Magnesium] 500 mg PO DAILY Discharge Medication List Cholecalciferol [Vitamin D3 (25 Mcg = 1000 Iu)] 5,000 unit PO DAILY 09/24/17 [History] Omeprazole [PriLOSEC] 20 mg PO QAM 09/24/17 [History] Diltiazem Cd [Cardizem CD] 240 mg PO QAM 02/23/20 [History] Multivitamins, Thera [Multivitamin (formulary)] 1 tab PO DAILY 02/23/20 [History] Vitamin C/Biotin [Hair, Skin and Nails Chew] 1 tab PO DAILY 02/23/20 [History] metFORMIN HCL [Glucophage] 500 mg PO DAILY 02/23/20 [History] Magnesium Oxide [Magnesium] 500 mg PO DAILY 01/25/22 [History] Apixaban [Eliquis] 2.5 mg PO BID #60 tab 01/31/22 [Rx] Docusate [Colace] 100 mg PO DAILY #30 capsule 01/31/22 [Rx] HYDROcodone/APAP 7.5-325MG [Ringgold 7.5] 1 each PO Q6HR PRN #28 tab 01/31/22 [Rx] Follow up Appointment(s)/Referral(s): Karen Sinclair MD [Primary Care Provider] - 02/06/22 3:15 pm Jefferson Kahn PAC [PHYSICIAN WORKER'S COMPENSATION CLAIMS EXAMINER] - 2 Weeks [facility], [REFERRING] - As Needed Patient Instructions/Handouts: *Surgery [facility] - On-Q Pain Pump Discharge Instructions, Knee Replacement (DC) Activity/Diet/Wound Care/Special Instructions: Orthopedic Discharge Instructions: 1. Wound care and infection precautions, keep incision dry and covered while showering, no lotions, creams, moisturizers. No soaking, pools, hot tubs. Do not scrub over incision. 2. Weight-bear as tolerated with walker / cane until follow-up. 3. Ice and elevate when necessary. Do not exceed 20 minutes per hour with ice pack. 4. Utilize compression sleeve until seen at first follow up appointment. 5. Pain meds and anticoagulants per prescription. 6. Pain medication has potential to cause constipation. Increase oral fluid and fiber intake. Contact primary care provider if you have not had a bowel movement within 48 hours after discharge. 7. No anti-inflammatory medication until discussed at first post operative visit, this including Motrin, Aleve, Mobic, Diclofenac 8. Follow up in office at 2 weeks postop with Denis Dunham PA-C / Jefferson Kahn PA-C 9. Follow up with your primary care doctor 7-10 days after discharge. 10. Contact [facility] with any questions, . Keep incision clean, dry, intact. While showering, cover fusion tape was Saran wrap. Keep fusion tape on until follow-up in office at 2 weeks Medications: Ringgold; Colace; Eliquis 2.5 mg BID x 2 weeks Discharge Disposition: HOME WITH HOME HEALTH SERVICES
[2022-01-31 10:47] LABS: HCT 35.4 % (37.2-46.3); HGB 11.6 g/dL (12.0-15.0); MCH 29.4 pg (27.0-32.0); MCHC 32.8 g/dL (32.0-37.0); MCV 89.8 fL (80.0-97.0); Mean Platelet Volume 9.5 fL (9.5-12.2); NRBC Per 100 WBC 0 /100 WBCS (0.0-0.0); Platelet Count 355 X 10*3/uL (140-440); RBC 3.94 X 10*6/uL (4.10-5.20); RDW 12.9 % (11.5-14.5); WBC 19.21 X 10*3/uL (4.50-10.00)
[2022-01-31 11:47] LABS: Glucose,Whole Blood 100 mg/dL (70-110)
--- NOTE | 2022-01-31 12:24 | P.PN ---
Subjective Progress Note Date: 01/31/22 Principal diagnosis: Right knee osteoarthritis Patient was seen at bedside this morning resting comfortably lying semirecumbent position. Patient says she has gotten up with nurse earlier this morning of bedside. Patient says she has urinated since surgery. Patient states most of the pain is in the front of her knee. Patient denies any radiation of pain. Patient says she has not had bowel movement yet, however, patient says she has been passing gas. Patient denies chest pain, fever, shortness breath, nausea, vomiting, change in vision, loss of bowel/bladder control. Objective - Vital Signs Vital signs: Vital Signs Temp 98.0 F 01/31/22 08:00 Pulse 58 L 01/31/22 08:00 Resp 17 01/31/22 08:00 BP 163/77 01/31/22 08:00 Pulse Ox 96 01/31/22 08:00 FiO2 Intake & Output 01/30/22 01/31/22 01/31/22 18:59 06:59 18:59 Intake Total 1651 1130 Output Total 50 Balance 1601 1130 Weight 76.3 kg Intake: IV 1651 Intake, IV Titration 50 Amount ceFAZolin 2 gm In Sodium 50 Chloride 0.9% 50 ml @ 100 mls/hr IVPB Q8HR [facility] Rx# :[id number] Oral 1080 Output: Estimated Blood Loss 50 Other: # Voids 5 2 - Exam Right knee: Incision is clean, dry, and intact. The exofin fusion tape is in good condition. There is minimal soft tissue swelling and ecchymosis surrounding the medial and lateral aspects of the incision. Calf is soft, no tenderness with palpation. Plantar flexion, dorsiflexion, EHL, FHL are intact. Sensory exam to light touch throughout the extremity is intact, dorsal pedis pulses 2+. - Labs CBC & Chem 7: 01/31/22 07:11 Labs: Abnormal Lab Results - Last 24 Hours (Table) 01/30/22 01/30/22 01/31/22 Range/Units 16:41 20:44 06:37 POC Glucose (mg/dL) 153 H 131 H 114 H (70-110) mg/dL Assessment and Plan Assessment: 1. Right knee osteoarthritis - Postoperative day 1 status post right total knee arthroplasty Plan: 1. Right knee osteoarthritis - right total knee arthroplasty performed yesterday, 01/30/2022. Patient stable at this at this morning. Patient does have a walker for home. Discharge home today with health services 2. Appreciate medical management 3. Pain management - [place] 4. DVT prophylaxis - Xarelto in hospital. Going home with Eliquis 2.5 mg BID x 2 weeks 5. GI prophylaxis - senna in hospital. Going home with Colace 6. PT/OT - weightbearing as tolerated with walker 7. Encourage incentive spirometer use 8. Discharge planning - discharge home today with health services. Time with Patient: Less than 30
[2022-01-31 12:48] LABS: Basophils # (A) 0.02 X 10*3/uL (0.00-0.10); Basophils % (A) 0.1 %; Eosinophils # (A) 0 X 10*3/uL (0.04-0.35); Eosinophils % (A) 0 %; Immature Grans, Automated 0.6 %; Lymphocytes # (A) 1.53 X 10*3/uL (0.90-5.00); Monocytes # (A) 1.55 X 10*3/uL (0.20-1.00); Monocytes % (A) 8.1 %; Neutrophils # (A) 15.99 X 10*3/uL (1.80-7.70); Neutrophils % (A) 83.2 %; RBC Morphology NORMAL
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
== END 2022-01-31 13:38 | disposition home health service (06) ==
LOC: OR 05:43 → 4SSUR 09:44 → OR 09:57 → 4FBP 09:57 → OR 23:19 → 4SSUR 23:19
PROVIDERS: ADMIT Orthopaedic Surgery; ATTEND Orthopaedic Surgery
DX: M17.11 Unilateral primary osteoarthritis, right knee (principal); E11.9 Type 2 diabetes mellitus without complications; I10 Essential (primary) hypertension; K21.9 Gastro-esophageal reflux disease without esophagitis; D72.829 Elevated white blood cell count, unspecified; Z79.84 Long term (current) use of oral hypoglycemic drugs; Z79.899 Other long term (current) drug therapy; Z88.8 Allergy status to other drugs, medicaments and biological substances; Z87.828 Personal history of other (healed) physical injury and trauma; Z96.652 Presence of left artificial knee joint; Z98.51 Tubal ligation status; Z98.890 Other specified postprocedural states; Z80.8 Family history of malignant neoplasm of other organs or systems; Z82.49 Family history of ischemic heart disease and other diseases of the circulatory system
CPT/HCPCS: 27447; 97161; 64999; 64448; 76942; 85025; 88300; 73560; G0378 ×2; C1713 ×2; C1776; C1751; J2250; J1100 ×2; J0690 ×2; J2405; J1170 ×2; J2795; J2704

== ENCOUNTER → 2022-07-11 | Outpatient (CLI) | payer OTHER ==
--- NOTE | 2022-07-12 16:47 | MM ---
Reason for Exam: Screening (asymptomatic). Last mammogram was performed 1 year(s) and 3 month(s) ago. Patient History: Menarche at age 11. First Full-Term at age 16. Postmenopausal. Patient has history of breast feeding. Benign Excisional Biopsy on the right side. Maternal aunt had breast cancer. Maternal aunt had breast cancer. Maternal cousin had breast cancer at or over age 50. Maternal cousin had breast cancer at or over age 50. Risk Values: Neris 5 year model risk: 1.4%. NCI Lifetime model risk: 6.7%. Prior Study Comparison: 10/12/2019 Bilateral Screening Mammogram, [facility]. 10/19/2019 Bilateral Diagnostic Mammogram, [facility]. 04/28/2021 Bilateral Screening Mammogram, [facility]. Tissue Density: There are scattered fibroglandular densities. Findings: Analyzed By CAD. Pattern appears symmetrical and stable. Core markers within the right breast. Benign take calcifications are scattered bilaterally. Chronic nodularity is within the upper outer right breast. No suspicious groups of microcalcifications, spiculated or lobular masses, architectural distortion or other secondary signs of malignancy are mammographically apparent. Overall Assessment: Benign, BI-RAD 2 Management: Screening Mammogram of both breasts in 1 year. A negative mammogram report should not preclude additional follow up of suspicious palpable abnormalities. Patient should continue monthly self breast exam. A clinical breast exam by your physician is recommended on an annual basis and results should be correlated with mammographic findings. Electronically signed and approved by: Jasbir Low D.O. Radiologis
== END | disposition home or self-care (01) ==
LOC: RADMAMWWP 07:08
PROVIDERS: ATTEND Obstetrics & Gynecology
DX: Z12.31 Encounter for screening mammogram for malignant neoplasm of breast (principal); Z78.0 Asymptomatic menopausal state; Z80.3 Family history of malignant neoplasm of breast; Z98.890 Other specified postprocedural states
CPT/HCPCS: 77063; 77067